=== PATIENT | female | born 1945 | race Caucasian/White ===

== ENCOUNTER → 2016-05-29 | Outpatient (CLI) | payer OTHER | LOC: FIMAGING 10:08 | DX: Z12.31 Encounter for screening mammogram for malignant neoplasm of breast (principal) | CPT/HCPCS: G0202 ==

== ENCOUNTER → 2016-07-04 | Outpatient (CLI) | payer OTHER ==
[~2016-07-04] MED LIST: IOPAMIDOL (ISOVUE 370) 100 ML BTL IV ONE
[2016-07-04 11:04] LABS: CREATININE 1.2 mg/dL (0.6-1.0)
== END ==
LOC: FIMAGING 10:16
PROVIDERS: ATTEND Internal Medicine Cardiovascular Disease
DX: I48.91 Unspecified atrial fibrillation (principal); J98.4 Other disorders of lung; E04.1 Nontoxic single thyroid nodule; K44.9 Diaphragmatic hernia without obstruction or gangrene
CPT/HCPCS: 75572; Q9967

== ENCOUNTER → 2016-09-28 | Outpatient (CLI) | payer OTHER | LOC: FIMAGING 11:11 | PROVIDERS: ATTEND Internal Medicine | DX: R05 Cough (principal); R07.9 Chest pain, unspecified; R50.9 Fever, unspecified; Z98.890 Other specified postprocedural states ==

== ENCOUNTER 2016-10-09 18:03 | Observation (INO) | payer OTHER ==
[2016-10-09] MEDS ORDERED: NS 1,000 ML IV ONE (18:11)
--- NOTE | 2016-10-09 18:14 | EDPHY ---
H & P Time Seen by Provider: 10/09/16 18:10 HPI/ROS: HPI CHIEF COMPLAINT: Severe chest pain HISTORY OF PRESENT ILLNESS: This patient is a 71-year-old female significant past medical history for factor 5 Leiden deficiency, multiple pulmonary embolisms, pulmonary hypertension oxygen dependent 2 L, AFib status post cardiac ablation, pacemaker, presents to the emergency room by EMS if she developed approximately 30 minutes ago sudden-onset severe 10/10 sharp stabbing chest pain radiated from the middle of her chest to her back. She did not have any jaw pain. Did not have any arm pain or weakness. She did have diaphoresis with this. Since EMS has transported here to the emergency room it has resolved. She did take full-dose aspirin prior to arrival she is on Coumadin. Past Medical History: Pulmonary embolisms, factor 5 Leiden deficiency on Coumadin, pulmonary hypertension, oxygen dependency Past Surgical History: Pacemaker, back surgery. Cardiac ablation Social History: Denies daily use of drugs alcohol tobacco products, lives locally. Family History: Noncontributory ROS REVIEW OF SYSTEMS: A comprehensive 10 point review of systems is otherwise negative aside from elements mentioned in the history of present illness. Exam Constitutional appears well nontoxic triage nursing summary reviewed, vital signs reviewed, awake/alert. Eyes normal conjunctivae and sclera, EOMI, PERRLA. HENT normal inspection, atraumatic, moist mucus membranes, no epistaxis, neck supple/ no meningismus, no raccoon eyes. Respiratory clear to auscultation bilaterally, normal breath sounds, no respiratory distress, no wheezing. Cardiovascular rate normal, regular rhythm, no murmur, no edema, distal pulses normal. Gastrointestinal soft, non-tender, no rebound, no guarding, normal bowel sounds, no distension, no pulsatile mass. Genitourinary no CVA tenderness. Musculoskeletal no midline vertebral tenderness, full range of motion, no calf swelling, no tenderness of extremities, no meningismus, good pulses, neurovascularly intact. Skin pink, warm, & dry, no rash, skin atraumatic. Neurologic awake, alert and oriented x 3, AAOx3, moves all 4 extremities equally, motor intact, sensory intact, CN II-XII intact, normal cerebellar, normal vision, normal speech. Psychiatric normal mood/affect. Heme/Lymph/Immune no lymphadenopathy. Differential diagnosis includes but is not limited to: ACS, atypical chest pain , pneumothorax, pneumonia, pulmonary embolism, aortic dissection, congestive heart failure, tumor, musculoskeletal pain, esophageal pain, GERD, peptic ulcer disease, pancreatitis Medical Decision Making: Plan for this patient full cardiac sonographer, IV establishment, EKG rule out acute coronary syndrome, check troponin, check D- dimer, blood work. Re-evaluation: EKG interpretation by me on record in [facility] system. Impression time of EKG 1815, atrially sensed ventricularly paced rhythm. Otherwise unremarkable. I do not appreciate abnormal concordance or discordance. 1936: I have consult the hospitalist service for admission for chest pain evaluation. The patient is still pending a CT of her chest for dissection. Unlikely to have dissection as she is hemodynamically stable. Troponin is negative. EKG is paced. X-ray does not show anything acute. This patient be admitted to the hospitalist service for chest pain evaluation and further cardiac rule out. She agrees for admission. Hemodynamically stable this time. Chest pain-free. Source: Patient - Personal History Tetanus Vaccine Date: <10 YRS - Medical/Surgical History Hx Asthma: No Hx Chronic Respiratory Disease: Yes Hx Diabetes: No Hx Cardiac Disease: Yes Hx Renal Disease: No Hx Cirrhosis: No Hx Alcoholism: No Hx HIV/AIDS: No Hx Splenectomy or Spleen Trauma: No Other PMH: Afib, Chronic Thromboembolic Pulmonary HTN, Factor 5 Leiden blood disorder, PE, Colitis. On home O2 at 2L r/t Pulmonary HTN. Herniated disc, 2 failed back surgeries. Hiatal hernia. Gerd. Hysterectomy, multiple orthopedic surgeries - Social History Smoking Status: Never smoked Constitutional: Initial Vital Signs Temperature (C) 37.3 C 10/09/16 18:10 Heart Rate 79 10/09/16 18:10 Respiratory Rate 18 10/09/16 18:10 Blood Pressure 124/77 H 10/09/16 18:10 O2 Sat (%) 94 10/09/16 18:10 O2 Delivery Mode Nasal Cannula O2 (L/minute) 2 Allergies/Adverse Reactions: clindamycin [Clindamycin] Allergy (Verified 11/19/15 11:10) meloxicam Allergy (Verified 11/19/15 11:10) venom-honey bee [bee venom (honey bee)] Allergy (Verified 11/19/15 11:10) Home Medications: Medication Instructions Recorded Budesonide [Entocort EC] 6 mg PO DAILY 08/04/14 Cyclobenzaprine [Flexeril 10 MG 10 mg PO HS 08/04/14 (*)] Flunisolide Nasal [Nasarel Nasal 1 sprays NS HS 08/04/14 [place]] Levothyroxine [Synthroid 137 mcg 137 mcg PO DAILY 08/04/14 (*)] Omeprazole [Prilosec] 40 mg PO BID 08/04/14 Sertraline HCl [Zoloft 50mg (*)] 50 mg PO DAILY 08/04/14 Zolpidem Tartrate [Ambien 10 mg] 10 mg PO HS PRN 08/04/14 Cholecalciferol Vit D3 [Vitamin D3 1,000 units PO DAILY 08/05/14 (*)] Docusate Sodium [Colace 100 MG (*)] 100 mg PO DAILY PRN 08/05/14 HYDROmorphone HCL [Dilaudid 2 mg 2 mg PO Q6 PRN 08/05/14 (*)] Herbals/Supplements -Info Only 1 ea PO DAILY 08/05/14 Hyoscyamine Sulfate [Levsin, 0.125 mg PO DAILY PRN 08/05/14 Hyomax-Sl 0.125 mg (*)] Multivitamins [Multivitamin (*)] 1 each PO DAILY@18 08/05/14 Potassium Chloride [Klor-Con M10] 10 meq PO DAILY@18 08/05/14 traMADol [Ultram 50 mg (*)] 100 mg PO BID 08/05/14 Metoprolol Tartrate [Lopressor 50 75 mg PO BID 04/14/15 mg (*)] amLODIPine BESYLATE [Norvasc 5 mg 5 mg PO DAILY 04/14/15 (*)] Lisinopril 20 mg PO DAILY #0 tablet 04/16/15 Cetirizine [ZyrTEC 10 mg (*)] 10 mg PO DAILY@18 PRN 10/09/16 Dicyclomine [Bentyl 10 MG (*)] 10 mg PO QID PRN 10/09/16 Furosemide 40 mg PO DAILY 10/09/16 Warfarin Sodium [Coumadin 2.5MG 1.25 mg PO MO@10/09/16 (*)] Warfarin Sodium [Coumadin 2.5MG 2.5 mg PO SUTUWETHFRSA@16 07/17/17 (*)] Medical Decision Making - Data Points Laboratory Results: Laboratory Results 10/09/16 18:10 10/09/16 18:10 Medications Given: Discontinued Medications Amlodipine Besylate (Norvasc) 5 mg PO DAILY SIENA Stop: 04/08/17 08:59 Last Admin: 10/10/16 08:35 Dose: 5 mg Budesonide (Entocort Ec) 6 mg PO DAILY SIENA Stop: 04/08/17 08:59 Last Admin: 10/10/16 08:34 Dose: 6 mg Cholecalciferol (Vitamin D) 1,000 units PO DAILY SIENA Stop: 04/08/17 08:59 Last Admin: 10/10/16 08:35 Dose: 1,000 units Furosemide (Lasix) 40 mg PO DAILY SIENA Stop: 04/08/17 08:59 Last Admin: 10/10/16 08:34 Dose: 40 mg Sodium Chloride (Ns) 1,000 mls @ 0 mls/hr IV ONCE ONE; Wide Open PRN Reason: Protocol Stop: 10/09/16 18:12 Last Admin: 10/09/16 18:21 Dose: 1,000 mls Levothyroxine Sodium (Synthroid) 137 mcg PO DAILY SIENA Stop: 04/08/17 08:59 Last Admin: 10/10/16 08:35 Dose: 137 mcg Lisinopril (Zestril) 20 mg PO DAILY SIENA Stop: 04/08/17 08:59 Last Admin: 10/10/16 08:34 Dose: 20 mg Metoprolol Tartrate (Lopressor) 75 mg PO BID SIENA Stop: 04/07/17 22:29 Last Admin: 10/10/16 08:31 Dose: 75 mg Pantoprazole Sodium (Protonix) 40 mg PO HS SIENA Stop: 04/07/17 22:29 Last Admin: 10/09/16 22:42 Dose: 40 mg Sertraline HCl (Zoloft) 50 mg PO DAILY SIENA Stop: 04/08/17 08:59 Last Admin: 10/10/16 08:35 Dose: 50 mg Tramadol HCl (Ultram) 100 mg PO BID SIENA Stop: 04/07/17 22:29 Last Admin: 10/10/16 08:32 Dose: 100 mg Warfarin Sodium (Coumadin) 1.25 mg PO MO@16 SIENA Stop: 04/07/17 22:29 Last Admin: 10/09/16 22:43 Dose: 1.25 mg Zolpidem Tartrate (Ambien) 10 mg PO HS PRN PRN Reason: Sleep/Insomnia Stop: 04/07/17 22:09 Last Admin: 10/09/16 22:45 Dose: 10 mg Departure - Departure Disposition: [facility] Inpatient Acute Clinical Impression: Chest pain Qualifiers: Chest pain type: unspecified Qualified Code(s): R07.9 - Chest pain, unspecified Condition: Good
--- NOTE | 2016-10-09 18:18 | CPEKG ---
Heart Rate: 70 RR Interval: 857 P-R Interval: 184 QRSD Interval: 132 QT Interval: 452 QTC Interval: 488 P [place]: 48 QRS [place]: 268 T Wave [place]: 61 EKG Severity - ABNORMAL ECG - EKG Impression: ATRIAL-SENSED VENTRICULAR-PACED RHYTHM Electronically Signed By: Nacho Christy 09-Oct-2016 22:32:10
[2016-10-09 18:21] LABS: % IMMATURE GRANULYOCYTES 0.5 % (0.0-1.1); ABSOLUTE IMMATURE GRANULOCYTES 0.04 10^3/uL (0.00-0.10); ADD DIFF? NO; ADD MORPH? NO; ADD SCAN? NO; ATYPICAL LYMPHOCYTE FLAG 10 (0-99); FRAGMENT RBC FLAG 0 (0-99); HEMATOCRIT 39.1 % (38.0-47.0); HEMOGLOBIN 12.8 g/dL (12.6-16.3); LEFT SHIFT FLG 0 (0-99); LIPEMIA HEMOLYSIS FLAG 80 (0-99); MEAN CELL HEMOGLOBIN 29.6 pg (27.9-34.1); MEAN CELL HEMOGLOBIN CONCENTR. 32.7 g/dL (32.4-36.7); MEAN CELL VOLUME 90.5 fL (81.5-99.8); MEAN PLATELET VOLUME 9.5 fL (8.7-11.7); PLATELET CLUMPS FLAG 0 (0-99); PLATELET COUNT 284 10^3/uL (150-400); RED BLOOD CELL COUNT 4.32 10^6/uL (4.18-5.33); RED CELL DISTRIBUTION WIDTH 14.3 % (11.5-15.2)
[2016-10-09 18:33] LABS: ALANINE AMINOTRANSFERASE 39 IU/L (9-52); ALBUMIN 4.4 g/dL (3.5-5.0); ALKALINE PHOSPHATASE 82 IU/L (38-126); ANION GAP 12 mEq/L (8-16); ASPARTATE AMINOTRANSFERASE 34 IU/L (14-46); BILIRUBIN,TOTAL 0.6 mg/dL (0.1-1.4); BILIRUBIN-CONJUGATED 0.3 mg/dL (0.0-0.5); BILIRUBIN-UNCONJUGATED 0.3 mg/dL (0.0-1.1); CALCIUM 10.2 mg/dL (8.5-10.4); CARBON DIOXIDE 29 mEq/l (22-31); CHLORIDE 98 mEq/L (97-110); CREATININE 1.3 mg/dL (0.6-1.0); GLOMERULAR FILTRATION RATE 40; GLUCOSE 122 mg/dL (70-100); INR 2.29 (0.83-1.16); MAGNESIUM 2.3 mg/dL (1.6-2.3); POTASSIUM 4.1 mEq/L (3.5-5.2); PROTIME(PATIENT) 25.4 SEC (12.0-15.0); SODIUM 139 mEq/L (134-144); TOTAL PROTEIN 7.6 g/dL (6.3-8.2)
[2016-10-09 18:34] LABS: APTT 36.1 SEC (23.0-38.0)
[2016-10-09 18:45] LABS: CREATINE KINASE-MB FRACTION 0.74 ng/mL (0-3.19); TROPONIN I < 0.012 ng/mL (0-0.034)
[2016-10-09] MEDS ORDERED: IOPAMIDOL (ISOVUE 370) 100 ML BTL IV ONE (19:54)
[2016-10-09] MEDS ORDERED: ACETAMINOPHEN 325 MG TAB PO PRN (21:54)
[2016-10-09] MEDS ORDERED: ONDANSETRON DISINTEGRATING 4 MG TAB PO PRN (21:54)
[2016-10-09] MEDS ORDERED: ONDANSETRON 4 MG/2 ML VIAL IVP PRN (21:54)
[2016-10-09] MEDS ORDERED: HYDROmorphONE/DILAUDID 2 MG TAB PO PRN (21:55)
[2016-10-09] MEDS ORDERED: DICYCLOMINE 10 MG CAP PO PRN (21:55)
[2016-10-09] MEDS ORDERED: HYOSCYAMINE SULFATE 0.125 MG TAB PO PRN (21:55)
[2016-10-09] MEDS ORDERED: DOCUSATE SODIUM 100 MG CAP PO PRN (21:55)
[2016-10-09] MEDS ORDERED: ZOLPIDEM TARTRATE 5 MG TAB PO PRN (22:10)
[2016-10-09] MEDS ORDERED: CETIRIZINE 10 MG TAB PO PRN (22:29)
[2016-10-09] MEDS ORDERED: WARFARIN SODIUM 2.5 MG TAB PO SCH (22:30)
[2016-10-09] MEDS ORDERED: PANTOPRAZOLE SODIUM 40 MG TAB PO SCH (22:30)
[2016-10-09] MEDS: traMADol 50 MG TAB PO SCH (22:41)
[2016-10-09] MEDS: METOPROLOL TARTRATE 50 MG TAB PO SCH (22:42)
--- NOTE | 2016-10-09 23:09 | GHP ---
[f rep st] HISTORY AND PHYSICAL DATE OF ADMISSION: 10/09/2016 HISTORY OF PRESENT ILLNESS: Ms Coleman is a pleasant 71-year-old female with history of pulmonary h ypertension secondary to PE as well as atrial fibrillation, status post ablation who presents with c entral chest pain that was severe. It was squeezing. It, perhaps, radiated to her back. It was 10 /10. She received some nitroglycerin and may have improved with that. She also got an aspirin. It was 4/5 in the ambulance and then get better. She has no history of coronary disease. It sounds l maya she has had some stress tests that have been negative in the past; although, I do not have those results available to me. She states she had an atrial fibrillation ablation just last week; althou gh, it is not clear to me based on our visit profile that this, in fact, happened. She has had no f ever, chills, cough, sputum, nausea, vomiting, diarrhea. Review of her records reveals she probably had an AFib ablation at [facility] in the last couple of months. REVIEW OF SYSTEMS: Complete 10-point review of systems conducted, negative except as noted in the H PI. PAST MEDICAL HISTORY: 1. Pulmonary hypertension secondary to PE. 2. PE. 3. Hypertension. 4. Atrial fibrillation status post ablation x2. 5. Factor 5 Leiden. 6. Reflux. 7. Microscopic colitis. ALLERGIES: Clindamycin, meloxicam, honey bee venom. HOME MEDICATIONS: Tramadol, amlodipine, Ambien, warfarin, sertraline, potassium chloride, omeprazol e, multivitamin, Lopressor, lisinopril, levothyroxine, hyoscyamine, Dilaudid pills, furosemide, flun isolide nasal spray, Bentyl, Flexeril, vitamin D3, Entocort. SOCIAL HISTORY: No tobacco, no alcohol. FAMILY HISTORY: Parents . PHYSICAL EXAMINATION: VITAL SIGNS: Temp 36.8, blood pressure 121/72, pulse 77, breathing 16 times a minute, 98 on 2 liters. GENERAL: No acute distress. Sclerae anicteric. Oropharynx clear. Muco us membranes are moist. NECK: Supple without lymphadenopathy or JVD. LUNGS: Clear to auscultatio n bilaterally. HEART: S1, S2. ABDOMEN: Soft, nontender, nondistended. LOWER EXTREMITIES: No ed lonny. Calves nontender. SKIN: Without rash. NEUROLOGIC: Grossly nonfocal. LABORATORY AND DIAGNOSTIC STUDIES: EKG interpreted by me shows AV node pacemaker, otherwise no acut e cardiopulmonary disease. CTA of the chest shows no pulmonary embolism. EKG, interpreted by me, s hows a sensed V paced rhythm with a left bundle branch block pattern. I discussed the case Dr. Baudilio Christy. ASSESSMENT/PLAN: This is a 71-year-old female with chest pain. 1. Chest pain. This does not sound like typical coronary artery disease chest-pain. It actually s ounds somewhat like an esophageal spasm. I discussed this with the patient and she was not necessar blake enthusiastic about that etiology. She says it does not sound like her pulmonary emboli. She allison s a therapeutic INR. She has a negative CT scan. We will cycle her troponins and perform Lexiscan in the morning. 2. Pulmonary hypertension. We will continue her medications. 3. History of multiple pulmonary emboli x3. Her INR is therapeutic. 4. Elevated creatinine. She has a baseline creatinine of about 1.2 and that is where she is today. DISPOSITION: Observation status. /[id number]/MODL
[2016-10-10 07:49] VITALS: BP 114/64; PULSE 70; RESP 15; TEMP 98.6; O2SAT 95
[2016-10-10] MEDS: METOPROLOL TARTRATE 50 MG TAB PO SCH (08:31)
[2016-10-10] MEDS: traMADol 50 MG TAB PO SCH (08:32)
[2016-10-10] MEDS ORDERED: LEVOTHYROXINE 137 MCG TAB PO SCH (09:00)
[2016-10-10] MEDS ORDERED: FUROSEMIDE 40 MG TAB PO SCH (09:00)
[2016-10-10] MEDS ORDERED: CHOLECALCIFEROL VIT D3 1,000 UNITS TAB PO SCH (09:00)
[2016-10-10] MEDS ORDERED: BUDESONIDE 3 MG EC CAP PO SCH (09:00)
[2016-10-10] MEDS ORDERED: PANTOPRAZOLE SODIUM 40 MG TAB PO SCH (09:00)
[2016-10-10] MEDS ORDERED: LISINOPRIL 20 MG TAB PO SCH (09:00)
[2016-10-10] MEDS ORDERED: traMADol 50 MG TAB PO SCH (09:00)
[2016-10-10] MEDS ORDERED: amLODIPine BESYLATE 5 MG TAB PO SCH (09:00)
[2016-10-10] MEDS ORDERED: METOPROLOL TARTRATE 50 MG TAB PO SCH (09:00)
[2016-10-10] MEDS ORDERED: Herbals/Supplements -Info Only PO SCH (09:00)
[2016-10-10] MEDS ORDERED: SERTRALINE HCL 50 MG TAB PO SCH (09:00)
--- NOTE | 2016-10-10 09:44 | PDDCSUM ---
Discharge Summary Discharge Summary: Dates of service 10/09-10/10/16 Discharge dx: # chest pain # chronic pulmonary htn # chronic hypoxic respiratory failure # recurrent PE # a fib # ckd # chronic pain/continuous narcotic use and dependency # microscopic colitis # hypothyroid Consultations/procedures: none Hospital course by problem: # chest pain: atypical and occurred on and off prior to presentation without recurrence here. Patient has had significant associated reflux as well and query esophageal spasm. 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 Discussed with cards who agree that with several negative trops, no ecg changes and atypical pain that this is reasonable. She will f/u in the next week # PE: recurrent with underlying factor V Leiden, continued on warfarin that is therapeutic, CTA showing no e/o VTE # ckd: at baseline # chronic pain with continuous narcotic use and dependency: continue op meds # microscopic colitis: continue entecort, levsin, bentyl. no acute complaints currently # chronic hypoxic respiratory failure: 2/2 recurrent PE, continued on her usual 2L # pulmonary htn: without elevated RVSP on most recent echo but patient has been on continuous o2, no e/o decompensation # a fib: s/p ablation with ppm, continued on ac/metop DC home f/u with cardiology in next week, f/u with pcp > 35 min spent in dc of patient, more than half in face to face counseling
[2016-10-10] MEDS ORDERED: WARFARIN SODIUM 2.5 MG TAB PO SCH (16:00)
[2016-10-10] MEDS ORDERED: CETIRIZINE 10 MG TAB PO PRN (18:00)
[2016-10-10] MEDS ORDERED: POTASSIUM CL 10 MEQ TAB PO SCH (18:00)
[2016-10-10] MEDS ORDERED: MULTIVITAMINS 1 EACH TAB PO SCH (18:00)
[2016-10-10] MEDS ORDERED: FLUNISOLIDE NASAL 200 SPRAYS/25 ML MDI NS SCH (21:00)
[2016-10-10] MEDS ORDERED: CYCLOBENZAPRINE 10 MG TAB PO SCH (21:00)
[2016-10-16] MEDS ORDERED: WARFARIN SODIUM 2.5 MG TAB PO SCH (16:00)
== END 2016-10-10 10:40 | disposition home or self-care (01) ==
LOC: EDUNIT# → INTOOBSV 19:39 → F2W 20:47
PROVIDERS: ADMIT Internal Medicine; ATTEND Internal Medicine
DX: R07.9 Chest pain, unspecified (principal); I27.2 Other secondary pulmonary hypertension; J96.11 Chronic respiratory failure with hypoxia; I48.91 Unspecified atrial fibrillation; N18.9 Chronic kidney disease, unspecified; I12.9 Hypertensive chronic kidney disease with stage 1 through stage 4 chronic kidney disease, or unspecified chronic kidney disease; G89.29 Other chronic pain; F11.20 Opioid dependence, uncomplicated; K52.839 Microscopic colitis, unspecified; E03.9 Hypothyroidism, unspecified; D68.51 Activated protein C resistance; K21.9 Gastro-esophageal reflux disease without esophagitis; K44.9 Diaphragmatic hernia without obstruction or gangrene; Z86.711 Personal history of pulmonary embolism; Z95.0 Presence of cardiac pacemaker; Z79.01 Long term (current) use of anticoagulants; Z99.81 Dependence on supplemental oxygen
CPT/HCPCS: 71010; 71275; 93005; G0378; Q9967

== ENCOUNTER → 2017-01-23 | Outpatient (CLI) | payer OTHER | LOC: FIMAGING 10:55 | PROVIDERS: ATTEND Internal Medicine | DX: Z13.820 Encounter for screening for osteoporosis (principal); M85.80 Other specified disorders of bone density and structure, unspecified site; Z78.0 Asymptomatic menopausal state; Z87.81 Personal history of (healed) traumatic fracture; Z82.62 Family history of osteoporosis; Z79.899 Other long term (current) drug therapy ==

== ENCOUNTER 2017-05-23 20:18 | Inpatient (IN) | payer OTHER ==
--- NOTE | 2017-05-23 20:29 | EDPHY ---
H & P Stated Complaint: SICK WEAK FOR PAST 24 HOURS DENIES FLU LIKE SX JUST WEAKNESS Time Seen by Provider: 05/23/17 20:28 HPI/ROS: HPI: This is a 71-year-old female who presents with Chief Complaint: SICK WEAK FOR PAST 24 HOURS DENIES FLU LIKE SX JUST WEAKNESS Location: Body Quality: Weakness Duration: 24 hr Signs and Symptoms: No fever, + nausea x1, + vomiting x 2, + diarrhea x2, + blurry vision, + aching headache, no neck stiffness, no cough, no wheezing, no chest pain, no radiation, no decreased range of motion, no palpitations, no shortness of breath Timing: Acute, constant Severity: Severe Context: Patient has a complicated medical history that includes atrial fibrillation on Coumadin, pacemaker, pulmonary hypertension, factor 5 Leiden did blood disorder, supplemental oxygen dependent presents with complaints of having generalized weakness and just not feeling well for the past 24 hr. She reports that she had some nausea and 2 episodes of vomiting yesterday and 2 episodes of diarrhea but attributes this to her colitis and irritable bowel syndrome. She believes that she may be dehydrated. She took her blood pressure medications this morning that include lisinopril, metoprolol as well as her pulmonary hypertension medicine but she is unable to recall the name of a but knows that starts with the letter "D." She has not taken her evening blood pressure medications as of yet. She noted this evening that her blood pressure was low; top number was in the 80s at home. She had lightheadedness with standing from a sitting position. No sick contacts. Modifying Factors: None Comment: ROS: see HPI Constitutional: No fever, no chills, no weight loss Eyes: No blurred vision Respiratory: No shortness of breath, no cough Cardiovascular: No chest pain Gastrointestinal: + nausea, + vomiting, + diarrhea Genitourinary: No dysuria Extremities: No myalgias Neurologic: No weakness, no numbness Skin: No rashes Hematologic: No bruising, no bleeding MEDICAL/SURGICAL/SOCIAL HISTORY: Medical/Surgical history: Afib, PACEMAKER, Chronic Thromboembolic Pulmonary HTN , Factor 5 Leiden blood disorder, PE, Colitis. On home O2 at 2L r/t Pulmonary HTN. Herniated disc, 2 failed back surgeries. Hiatal hernia. ischemic colitis. Gerd. Hysterectomy, multiple orthopedic surgeries Social history: Retired. Family history noncontributory. CONSTITUTIONAL: Chronically ill-appearing elderly white female, moaning and yelling out with blood pressure cuff, awake and alert, no obvious distress HEENT: Atraumatic and normocephalic, PERRL, EOMI. Tympanic membranes clear. Oropharynx clear, no exudate and moist pink mucosa. Airway patent. No lymphadenopathy. No meningismus. Cardiovascular: Normal S1/S2, regular rate, irregular rhythm, without murmur rub or gallop. PULMONARY/CHEST: Symmetrical and nontender. Clear to auscultation bilaterally. Good air movement. No accessory muscle usage. ABDOMEN: Soft, nondistended, nontender, no rebound, no guarding, no peritoneal signs, no masses or organomegaly. No CVAT. EXTREMITIES: 2/2 pulses, strength 5/5, no deformities, no clubbing, no cyanosis or edema. NEUROLOGICAL: no focal neuro deficits. GCS 15. SKIN: Warm and dry, pallor, no erythema. no rash. Good capillary refill. Source: Patient, Family (significant other) Exam Limitations: No limitations - Personal History Current Tetanus/Diphtheria Vaccine: Yes Current Tetanus Diphtheria and Acellular Pertussis (TDAP): Yes Tetanus Vaccine Date: <10 YRS - Medical/Surgical History Hx Asthma: No Hx Chronic Respiratory Disease: Yes Hx Diabetes: No Hx Cardiac Disease: Yes Hx Renal Disease: No Hx Cirrhosis: No Hx Alcoholism: No Hx HIV/AIDS: No Hx Splenectomy or Spleen Trauma: No Other PMH: Afib, PACEMAKER, Chronic Thromboembolic Pulmonary HTN, Factor 5 Leiden blood disorder, PE, Colitis. On home O2 at 2L r/t Pulmonary HTN. Herniated disc, 2 failed back surgeries. Hiatal hernia. Gerd. Hysterectomy, multiple orthopedic surgeries - Social History Smoking Status: Never smoked Constitutional: Initial Vital Signs Temperature (C) 37.1 C 05/23/17 20:22 Heart Rate 80 05/23/17 20:22 Respiratory Rate 20 05/23/17 20:22 Blood Pressure 80/49 L 05/23/17 20:22 O2 Sat (%) 96 05/23/17 20:22 O2 Delivery Mode Nasal Cannula O2 (L/minute) 3 Allergies/Adverse Reactions: clindamycin [Clindamycin] Allergy (Verified 05/23/17 20:25) meloxicam Allergy (Verified 05/23/17 20:25) venom-honey bee [bee venom (honey bee)] Allergy (Verified 05/23/17 20:25) Home Medications: Medication Instructions Recorded Budesonide [Entocort EC] 6 mg PO DAILY 08/04/14 Cyclobenzaprine [Flexeril 10 MG 10 mg PO HS 08/04/14 (*)] Flunisolide Nasal [Nasarel Nasal 1 sprays NS HS 08/04/14 [place]] Levothyroxine [Synthroid 137 mcg 137 mcg PO DAILY 08/04/14 (*)] Omeprazole [Prilosec] 40 mg PO BID 08/04/14 Sertraline HCl [Zoloft 50mg (*)] 50 mg PO DAILY 08/04/14 Zolpidem Tartrate [Ambien 10 mg] 10 mg PO HS PRN 08/04/14 Cholecalciferol Vit D3 [Vitamin D3 1,000 units PO DAILY 08/05/14 (*)] Docusate Sodium [Colace 100 MG (*)] 100 mg PO DAILY PRN 08/05/14 HYDROmorphone HCL [Dilaudid 2 mg 2 mg PO Q6 PRN 08/05/14 (*)] Herbals/Supplements -Info Only 1 ea PO DAILY 08/05/14 Hyoscyamine Sulfate [Levsin, 0.125 mg PO DAILY PRN 08/05/14 Hyomax-Sl 0.125 mg (*)] Multivitamins [Multivitamin (*)] 1 each PO DAILY@18 08/05/14 Potassium Chloride [Klor-Con M10] 10 meq PO DAILY@18 08/05/14 traMADol [Ultram 50 mg (*)] 100 mg PO BID 08/05/14 Metoprolol Tartrate [Lopressor 50 75 mg PO BID 04/14/15 mg (*)] amLODIPine BESYLATE [Norvasc 5 mg 5 mg PO DAILY 04/14/15 (*)] Lisinopril 20 mg PO DAILY #0 tablet 04/16/15 Cetirizine [ZyrTEC 10 mg (*)] 10 mg PO DAILY@18 PRN 10/09/16 Dicyclomine [Bentyl 10 MG (*)] 10 mg PO QID PRN 10/09/16 Furosemide 40 mg PO DAILY 10/09/16 Warfarin Sodium [Coumadin 2.5MG 1.25 mg PO MO@10/09/16 (*)] Warfarin Sodium [Coumadin 2.5MG 2.5 mg PO SUTUWETHFRSA@10/09/16 (*)] Medical Decision Making ED Course/Re-evaluation: EKG, labs, urinalysis, IV fluids Systolic 80-90s upon arrival and symptomatic. Suspect blood pressure medication and hypokalemia related but will rule out infectious, cardiac, metabolic etiologies. EKG my read shows paced rhythm with a rate of 72 beats per minute; no acute ischemic changes. Chart review shows echocardiogram on 04/15/2015 with EF of 65-70%. Given 500 cc NS 2100: Labs reviewed and show WBC 14 K with a lactic acid of 2.2. INR 3.18. BUN: 30 and 18 in february. Creatinine 1.9 and 1.2 in February ProBNP is elevated but suspect renal related 0: ED decision to consult for admission. Spoke with Hospital Dr. Ulisses Meneses family agrees to admit patient for further care. Urinalysis and repeat lactic acid pending at time of consult. This patient was seen under the supervision of my secondary supervising physician. I evaluated care for this patient independently. Discussed this patient with Dr. Gongora who did not see the patient. Differential Diagnosis: Weakness including but not limited to electrolyte abnormality, depression, anxiety, CVA, spinal cord abnormality, and infectious causes. - Data Points Laboratory Results: Laboratory Results 05/23/17 20:35 05/23/17 20:35 05/23/17 05/23/17 05/23/17 20:35 20:35 20:35 WBC 14.00 10^3/uL H 10^3/uL (3.80-9.50) RBC 4.68 10^6/uL 10^6/uL (4.18-5.33) Hgb 14.1 g/dL g/dL (12.6-16.3) Hct 40.9 % % (38.0-47.0) MCV 87.4 fL fL (81.5-99.8) MCH 30.1 pg pg (27.9-34.1) MCHC 34.5 g/dL g/dL (32.4-36.7) RDW 14.2 % % (11.5-15.2) Plt Count 240 10^3/uL 10^3/uL (150-400) MPV 9.0 fL fL (8.7-11.7) Neut % (Auto) 78.9 % H % (39.3-74.2) Lymph % (Auto) 11.0 % L % (15.0-45.0) [place] % (Auto) 7.9 % % (4.5-13.0) Eos % (Auto) 1.4 % % (0.6-7.6) Baso % (Auto) 0.4 % % (0.3-1.7) Nucleat RBC Rel Count 0.0 % % (0.0-0.2) Absolute Neuts (auto) 11.05 10^3/uL H 10^3/uL (1.70-6.50) Absolute Lymphs (auto) 1.54 10^3/uL 10^3/uL (1.00-3.00) Absolute Monos (auto) 1.10 10^3/uL H 10^3/uL (0.30-0.80) Absolute Eos (auto) 0.20 10^3/uL 10^3/uL (0.03-0.40) Absolute Basos (auto) 0.06 10^3/uL 10^3/uL (0.02-0.10) Absolute Nucleated RBC 0.00 10^3/uL 10^3/uL (0-0.01) Immature Gran % 0.4 % % (0.0-1.1) Immature Gran # 0.05 10^3/uL 10^3/uL (0.00-0.10) PT 32.4 SEC H SEC (12.0-15.0) INR 3.18 H (0.83-1.16) APTT 52.7 SEC H SEC (23.0-38.0) VBG Lactic Acid Sodium 136 mEq/L mEq/L (135-145) Potassium 4.0 mEq/L mEq/L (3.5-5.2) Chloride 96 mEq/L L mEq/L (97-110) Carbon Dioxide 28 mEq/l mEq/l (22-31) Anion Gap 12 mEq/L mEq/L (8-16) BUN 30 mg/dL H mg/dL (7-23) Creatinine 1.9 mg/dL H mg/dL (0.6-1.0) Estimated GFR 26 Glucose 116 mg/dL H mg/dL (70-100) Calcium 9.5 mg/dL mg/dL (8.5-10.4) Magnesium 2.7 mg/dL H mg/dL (1.6-2.3) Total Bilirubin 0.6 mg/dL mg/dL (0.1-1.4) Conjugated Bilirubin 0.3 mg/dL mg/dL (0.0-0.5) Unconjugated Bilirubin 0.3 mg/dL mg/dL (0.0-1.1) AST 38 IU/L IU/L (14-46) ALT 47 IU/L IU/L (9-52) Alkaline Phosphatase 65 IU/L IU/L (38-126) Troponin I < 0.012 ng/mL ng/mL (0.000-0.034) NT-Pro-B Natriuret Pep 1150 pg/mL H pg/mL (0-125) Total Protein 6.6 g/dL g/dL (6.3-8.2) Albumin 3.8 g/dL g/dL (3.5-5.0) Lipase < 10 IU/L L IU/L (23-300) 05/23/17 20:35 WBC RBC Hgb Hct MCV MCH MCHC RDW Plt Count MPV Neut % (Auto) Lymph % (Auto) [place] % (Auto) Eos % (Auto) Baso % (Auto) Nucleat RBC Rel Count Absolute Neuts (auto) Absolute Lymphs (auto) Absolute Monos (auto) Absolute Eos (auto) Absolute Basos (auto) Absolute Nucleated RBC Immature Gran % Immature Gran # PT INR APTT VBG Lactic Acid 2.2 mmol/L H mmol/L (0.7-2.1) Sodium Potassium Chloride Carbon Dioxide Anion Gap BUN Creatinine Estimated GFR Glucose Calcium Magnesium Total Bilirubin Conjugated Bilirubin Unconjugated Bilirubin AST ALT Alkaline Phosphatase Troponin I NT-Pro-B Natriuret Pep Total Protein Albumin Lipase Medications Given: Discontinued Medications Sodium Chloride (Ns) 500 mls @ 1,000 mls/hr IV EDNOW ONE PRN Reason: Protocol Stop: 05/23/17 21:06 Last Admin: 05/23/17 20:44 Dose: 500 mls Departure - Departure Disposition: [facility] Acute Clinical Impression: Generalized weakness, Dehydration, SIRS (systemic inflammatory response syndrome) Hypotension Qualifiers: Hypotension type: other hypotension type Qualified Code(s): I95.89 - Other hypotension Condition: Fair Referrals: Nilesh Reno MD [Primary Care Provider] - As per Instructions
[2017-05-23] MEDS ORDERED: NS 500 ML IV ONE (20:37)
--- NOTE | 2017-05-23 20:40 | CPEKG ---
Heart Rate: 72 RR Interval: 833 P-R Interval: 332 QRSD Interval: 136 QT Interval: 444 QTC Interval: 486 P [place]: 5 QRS [place]: -81 T Wave [place]: 70 EKG Severity - ABNORMAL ECG - EKG Impression: VENTRICULAR-PACED COMPLEXES EKG Impression: FIRST DEGREE AV BLOCK EKG Impression: IVCD, CONSIDER ATYPICAL RBBB EKG Impression: LEFT VENTRICULAR HYPERTROPHY Electronically Signed By: Nawaf Michael 25-May-2017 20:39:46
[2017-05-23 20:46] LABS: PLATELET COUNT 240 10^3/uL (150-400)
[2017-05-23 20:58] LABS: INR 3.18 (0.83-1.16); PROTIME(PATIENT) 32.4 SEC (12.0-15.0)
[2017-05-23] MEDS ORDERED: ACETAMINOPHEN 325 MG TAB PO PRN (23:04)
[2017-05-23] MEDS ORDERED: ONDANSETRON 4 MG/2 ML VIAL IVP PRN (23:04)
[2017-05-23] MEDS ORDERED: NS 1,000 ML IV ONE (23:12)
[2017-05-23] MEDS ORDERED: HYOSCYAMINE SULFATE 0.125 MG TAB PO PRN (23:17)
[2017-05-23] MEDS ORDERED: ZOLPIDEM TARTRATE 5 MG TAB PO PRN (23:17)
--- NOTE | 2017-05-24 | PDGENHP ---
History and Physical - Chief Complaint low blood pressure, nausea/vomiting/diarrhea - History of Present Illness Source-patient provides history appears reliable. Her EMR was also reviewed and case discussed with the accepting hospitalist provider Patient goes by Giorgi KODAK-very pleasant 71-year-old female with past medical history significant for atrial fibrillation, factor 5 Leiden deficiency, history of PE on chronic anticoagulation with Coumadin, asthma, hypothyroidism, pulmonary hypertension, GERD, IBS, microscopic colitis who presents emergency department today with complaints of 1 day history of nausea vomiting and diarrhea. Patient also reports that she had some lower abdominal cramping related to having to go to the bathroom frequently. Patient reports that she has had multiple episodes that she can't count. She denies any hematemesis, melena, hematochezia. She denies any known sick contacts. Patient denies any recent travel, camping or use of well water. She denies any fevers or chills. Patient does report difficulties keeping any hydration and feeling quite dry. Patient also was having increasing lightheadedness with blurry vision and diffuse muscle aching. She has also had a persistent constant headache without any associated changes in vision or photophobia. At home patient did measure her blood pressure and noted that the lowest was 75/40. She had taken her morning antihypertensives including metoprolol and lisinopril but in the evening did not not take any of her medications including Lasix. Patient does admit to experiencing severe palpitations without any chest pain. Patient reports that she received a notification for through her [place] monitoring system that 1 of her leads may not be working appropriately. She has not yet been to follow up with her Cardiology team at [place]. Patient reports that she has a dual- chamber [place] pacer in place. 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 Given her severe dehydration she presented to the emergency department for further evaluation and treatment. In the emergency department, patient was noted to be hypotensive. She received 500 cc bolus with improvement of her blood pressures to low 100s. Patient also received antiemetics with improvement in her nausea vomiting. She was able to tolerate some liquids. On the medical floor patient's blood pressures were noted to be back down into the 80s. Patient had persistent headache with that did not change. History Information - Allergies/Home Medication List Allergies/Adverse Reactions: clindamycin [Clindamycin] Allergy (Verified 05/23/17 20:25) meloxicam Allergy (Verified 05/23/17 20:25) venom-honey bee [bee venom (honey bee)] Allergy (Verified 05/23/17 20:25) Home Medications: Budesonide [Entocort EC] 6 mg PO DAILY 08/04/14 [Last Taken 05/23/17] Cyclobenzaprine [Flexeril 10 MG (*)] 10 mg PO HS 08/04/14 [Last Taken 05/22/17] Flunisolide Nasal [Nasarel Nasal [place]] 1 sprays NS HS 08/04/14 [Last Taken ] Levothyroxine [Synthroid 137 mcg (*)] 137 mcg PO DAILY 08/04/14 [Last Taken ] Omeprazole [Prilosec] 40 mg PO BID 08/04/14 [Last Taken 05/23/17 09:00] Zolpidem Tartrate [Ambien 10 mg] 10 mg PO HS PRN 08/04/14 [Last Taken 05/22/17] Docusate Sodium [Colace 100 MG (*)] 100 mg PO DAILY PRN 08/05/14 [Last Taken 3 Days Ago ~05/20/17] Herbals/Supplements -Info Only 1 ea PO DAILY 08/05/14 [Last Taken 05/23/17] Hyoscyamine Sulfate [Levsin, Hyomax-Sl 0.125 mg (*)] 0.125 mg PO DAILY PRN 08/05 [Last Taken 05/22/17] Multivitamins [Multivitamin (*)] 1 each PO DAILY@18 08/05/14 [Last Taken ] Potassium Chloride [Klor-Con M10] 10 meq PO DAILY@08/05/14 [Last Taken ] traMADol [Ultram 50 mg (*)] 100 mg PO BID 08/05/14 [Last Taken 05/23/17 09:00] Metoprolol Tartrate [Lopressor 50 mg (*)] 75 mg PO BID 04/14/15 [Last Taken 09:00] Furosemide 40 mg PO DAILY 10/09/16 [Last Taken 05/22/17] Warfarin Sodium [Coumadin 2.5MG (*)] 1.25 mg PO MO@16 10/09/16 [Last Taken 05/21] Warfarin Sodium [Coumadin 2.5MG (*)] 2.5 mg PO SUTUWETHFRSA@16 10/09/16 [Last Taken 05/22/17] Adempas 2.5 mg PO TID 05/23/17 [Last Taken 05/23/17 09:00] Lisinopril [Zestril 5 mg (*)] 5 mg PO DAILY 05/23/17 [Last Taken 05/23/17] Sertraline HCl [Zoloft 100mg (*)] 100 mg PO DAILY 05/23/17 [Last Taken 05/23/17] I have personally reviewed and updated: family history, medical history, social history, surgical history - Past Medical History Additional medical history: Atrial fibrillation S/P pacer (patient reports it is a [place] dual-chamber pacer) for which she is followed at [place], factor 5 Leiden deficiency, history of PE, chronic anticoagulation with Coumadin, depression, asthma, hypothyroidism, IBS diarrhea predominant, microscopic colitis, herniated discs, hiatal hernia, single episode of aspiration pneumonia patient is not require to be on any modified diet, chronic back pain - Surgical History Additional surgical history: Back surgery multiple, hysterectomy, ablation in 2017, pacer placement - Family History Additional family history: Cousins with diabetes. Patient's twin sister now had a history of diabetes and metastatic melanoma - Social History Smoking Status: Never smoked Alcohol Use: None Drug Use: None Additional social history: Patient is retired. Cor status is full. Review of Systems Review of Systems: ROS: 10pt was reviewed & negative except for what was stated in HPI & below Constitutional: Reports: malaise. Denies: chills, fever EENMT: Reports: blurred vision. Denies: double vision, nose congestion, sore throat Cardiac: Reports: palpitations. Denies: chest pain Respiratory: Reports: shortness of breath (Patient reports some increased shortness of breath and she increased her O2 from 2-3 nasal cannula with improvement.). Denies: cough Gastrointestinal: Reports: vomitting, abdominal pain (Lower abdominal cramping) , diarrhea, nausea. Denies: black stools, rectal bleeding, abdominal distention Genitourinary: Reports: other (Patient notes decreased urine output. Has not voided since arrival to the hospital.). Denies: dysuria, hematuria Muscolosketal: Reports: back pain (Chronic back pain), muscle pain (Diffuse muscle aching) Neurological: Reports: headache, tingling (Patient reports some tingling in the tips of her fingers.). Denies: depressed, tremors Hematologic/Lymphatic: Reports: no symptoms Physical Exam Physical Exam: Selected Entries 05/23/17 20:22 Blood Pressure Automatic Method Heart Rate 80 Respiratory 20 Rate O2 Sat (%) 96 Temperature (C) 37.1 C Blood Pressure 80/49 L Mean Arterial 59 L Pressure (MAP) O2 (L/minute) 2 O2 Delivery Nasal Cannula Mode Temperature Oral Source Temp Pulse Resp BP Pulse Ox 36.7 C 70 16 112/54 L 94 05/23/17 23:42 05/23/17 23:42 05/23/17 23:42 05/23/17 23:42 05/23/17 23:42 O2 (L/minute) 4 Constitutional: no apparent distress, uncomfortable, other (Acute on chronically ill. Nontoxic. Uncomfortable) Eyes: PERRL, anicteric sclera, EOMI Ears, Nose, Mouth, Throat: no oral mucosal ulcers, dry mucous membranes, other ( No nasal discharge), No poor dentition Cardiovascular: regular rate and rhythym, no murmur, rub, or gallop (Slightly distant heart sounds), No edema Peripheral Pulses: 2+: dorsalis-pedis (R), dorsalis-pedis (L) Respiratory: no respiratory distress, no rales or rhonchi, clear to auscultation , reduced air movement (Bibasilar), No expiratory wheeze Gastrointestinal: normoactive bowel sounds, soft, non-tender abdomen, no palpable masses, No guarding, No distension Genitourinary: no bladder tenderness, No palacios in urethra Skin: warm, normal color, no rashes or abrasions Musculoskeletal: generalized weakness (Patient able to move all extremities 4-5 strength upper lower extremities while lying in bed.), other (No decreases in neck range of motion) Neurologic: AAOx3, sensation intact bilaterally, weakness (Generalized), other ( Grossly nonfocal exam. Patient moves all extremities.), No facial droop Psychiatric: interacting appropriately, not anxious, not encephalopathic, thought process linear Lab Data & Imaging Review 05/24/17 04:11 05/24/17 04:11 WBC 14.00 10^3/uL (3.80-9.50) H 05/23/17 20:35 RBC 4.68 10^6/uL (4.18-5.33) 05/23/17 20:35 Hgb 14.1 g/dL (12.6-16.3) 05/23/17 20:35 Hct 40.9 % (38.0-47.0) 05/23/17 20:35 MCV 87.4 fL (81.5-99.8) 05/23/17 20:35 MCH 30.1 pg (27.9-34.1) 05/23/17 20:35 MCHC 34.5 g/dL (32.4-36.7) 05/23/17 20:35 RDW 14.2 % (11.5-15.2) 05/23/17 20:35 Plt Count 240 10^3/uL (150-400) 05/23/17 20:35 MPV 9.0 fL (8.7-11.7) 05/23/17 20:35 Neut % (Auto) 78.9 % (39.3-74.2) H 05/23/17 20:35 Lymph % (Auto) 11.0 % (15.0-45.0) L 05/23/17 20:35 [place] % (Auto) 7.9 % (4.5-13.0) 05/23/17 20:35 Eos % (Auto) 1.4 % (0.6-7.6) 05/23/17 20:35 Baso % (Auto) 0.4 % (0.3-1.7) 05/23/17 20:35 Nucleat RBC Rel Count 0.0 % (0.0-0.2) 05/23/17 20:35 Absolute Neuts (auto) 11.05 10^3/uL (1.70-6.50) H 05/23/17 20:35 Absolute Lymphs (auto) 1.54 10^3/uL (1.00-3.00) 05/23/17 20:35 Absolute Monos (auto) 1.10 10^3/uL (0.30-0.80) H 05/23/17 20:35 Absolute Eos (auto) 0.20 10^3/uL (0.03-0.40) 05/23/17 20:35 Absolute Basos (auto) 0.06 10^3/uL (0.02-0.10) 05/23/17 20:35 Absolute Nucleated RBC 0.00 10^3/uL (0-0.01) 05/23/17 20:35 Immature Gran % 0.4 % (0.0-1.1) 05/23/17 20:35 Immature Gran # 0.05 10^3/uL (0.00-0.10) 05/23/17 20:35 PT 32.4 SEC (12.0-15.0) H 05/23/17 20:35 INR 3.18 (0.83-1.16) H 05/23/17 20:35 APTT 52.7 SEC (23.0-38.0) H 05/23/17 20:35 VBG Lactic Acid 1.3 mmol/L (0.7-2.1) D 05/23/17 22:08 Sodium 136 mEq/L (135-145) 05/23/17 20:35 Potassium 4.0 mEq/L (3.5-5.2) 05/23/17 20:35 Chloride 96 mEq/L (97-110) L 05/23/17 20:35 Carbon Dioxide 28 mEq/l (22-31) 05/23/17 20:35 Anion Gap 12 mEq/L (8-16) 05/23/17 20:35 BUN 30 mg/dL (7-23) H 05/23/17 20:35 Creatinine 1.9 mg/dL (0.6-1.0) H 05/23/17 20:35 Estimated GFR 26 05/23/17 20:35 Glucose 116 mg/dL (70-100) H 05/23/17 20:35 Calcium 9.5 mg/dL (8.5-10.4) 05/23/17 20:35 Magnesium 2.7 mg/dL (1.6-2.3) H 05/23/17 20:35 Total Bilirubin 0.6 mg/dL (0.1-1.4) 05/23/17 20:35 Conjugated Bilirubin 0.3 mg/dL (0.0-0.5) 05/23/17 20:35 Unconjugated Bilirubin 0.3 mg/dL (0.0-1.1) 05/23/17 20:35 AST 38 IU/L (14-46) 05/23/17 20:35 ALT 47 IU/L (9-52) 05/23/17 20:35 Alkaline Phosphatase 65 IU/L (38-126) 05/23/17 20:35 Troponin I < 0.012 ng/mL (0.000-0.034) 05/23/17 20:35 NT-Pro-B Natriuret Pep 1150 pg/mL (0-125) H 05/23/17 20:35 Total Protein 6.6 g/dL (6.3-8.2) 05/23/17 20:35 Albumin 3.8 g/dL (3.5-5.0) 05/23/17 20:35 Lipase < 10 IU/L (23-300) L 05/23/17 20:35 Assessment & Plan Assessment: Hypotension (Acute) -with history of benign essential hypertension likely secondary to hypovolemia in addition patient had been taking her antihypertensives earlier in the morning. She is volume responsive after receiving 500 cc bolus in the emergency department. Patient does appear to be quite dry will go ahead and give her a 1 L bolus followed by aggressive IV fluid hydration IV. She does have history of AFib and a pacer in place but no noted issues with CHF. Will monitor for fluid status closely. Holding patient' s antihypertensives. Patient is quite anxious regarding holding most of her home medications secondary to her history of pulmonary hypertension as well as her history of steroid tapering. Acute kidney injury on CKD stage 3 - patient reports her baseline creatinine is 1.1-1.2. Currently 1.9 and likely pre renal in nature related to patient's hypovolemia and decreased arterial perfusion in setting of her hypotension. Anticipate that this should improve with fluid resuscitation and mandaeism of her blood pressure. Pharmacy consultation to assist with renal dosing. Will avoid nephrotoxic medications. Nausea vomiting and diarrhea - suspect a viral gastroenteritis versus exacerbation of her colitis. Patient has not had any further episodes of vomiting or diarrhea since arrival to the hospital. If this should recur then will plan to obtain a GI PCR panel. Antiemetics p.r.n. Lactic acidosis - resolved status post IV fluids. Dehydration (Acute) - IV fluids as noted above. Encourage oral hydration as tolerated. SIRS (systemic inflammatory response syndrome) (Acute) - vital signs have improved. Patient without any further tachycardia. Will monitor her WBC in the morning for resolution of her leukocytosis. Etiology is likely viral gastroenteritis. Supratherapeutic INR - the increase in setting of dehydration. Will monitor PT INR. Pharmacy consultation to assist with appropriate dosing. Generalized weakness (Acute) - IV fluid hydration reassess in the morning p.r.n. PT OT evaluations. Up with assist well patient with episodes of hypotension and continued complaints of weakness. Headache - ongoing since patient's symptoms started likely related to hypotension dehydration and possible withdrawal from patient's chronically taken medications. She has no focal deficits no changes in vision no photophobia. Will treat with the tramadol and continue IV fluid hydration and see if patient's symptoms improved. chronic medical issues Atrial fibrillation status post pacer - supratherapeutic INR greater than 3 at this time. Patient is monitored on telemetry. She has not had any episodes of RVR but has reported some significant increase in palpitations since she has become ill. Patient also reports that her [place] pacer monitor at home did alert her to the possibility of some abnormal readings. Will request interrogation of patient's pacer. Continue anticoagulation with Coumadin. Pharmacy consultation to assist with dosing. Hypothyroidism - resume patient's levothyroxine as tolerated Asthma - albuterol p.r.n. Depression-resume patient's sertraline IBS-diarrhea predominant - supportive care. Plan as noted above Microscopic colitis Chronic back pain - resume patient's tramadol. [place] p.r.n. History aspiration pneumonia - patient reported some coughing she denies that this is attributed to swallowing any snacks or liquids. Will monitor closely given patient's complaint of increased oxygen needs at home. Pulmonary hypertension - resume patient's home medications FEN - aggressive IV fluid hydration overnight. Advance diet as tolerated and encourage oral hydration. Electrolytes will be monitored and replaced p.r.n. PPX - SCDs if tolerated. Patient's INR just slightly supratherapeutic. Core-full Disposition-patient admitted to inpatient status on PCU floor for close cardiac monitoring. Given patient's multiple acute issues, persistent hypotension and severe dehydration anticipate that she will require to at least 2 midnights hospital stay.
[2017-05-24] MEDS: HYDROCODONE/APAP 5/325 TAB PO PRN ×4 (00:03→16:03)
[2017-05-24 04:32] LABS: PLATELET COUNT 194 10^3/uL (150-400)
[2017-05-24 04:36] LABS: INR 3.76 (0.83-1.16); PROTIME(PATIENT) 36.8 SEC (12.0-15.0)
[2017-05-24 04:46] LABS: CREATINE KINASE 42 IU/L (0-156)
[2017-05-24] MEDS: LEVOTHYROXINE 137 MCG TAB PO SCH (05:59)
[2017-05-24] MEDS: NS 1,000 ML IV SCH ×2 (06:00→16:05)
--- NOTE | 2017-05-24 08:16 | CPEKG ---
Heart Rate: 83 RR Interval: 723 P-R Interval: 192 QRSD Interval: 142 QT Interval: 448 QTC Interval: 527 P [place]: 35 QRS [place]: 269 T Wave [place]: 63 EKG Severity - ABNORMAL ECG - EKG Impression: SINUS RHYTHM EKG Impression: NONSPECIFIC IVCD WITH LAD EKG Impression: INFERIOR INFARCT, AGE INDETERMINATE EKG Impression: LATERAL INFARCT, AGE INDETERMINATE EKG Impression: ANTERIOR INFARCT, OLD EKG Impression: MORPHILOGY APPEARS THR SAME PRIOR, BUT PACER SPIKES ARE NOT NOTED Electronically Signed By: Nawaf Michael 24-May-2017 17:43:18
--- NOTE | 2017-05-24 08:55 | PDMN ---
Medical Necessity Medical necessity: Pt meets IP criteria per MD; est los >2 mn for eval/tx of persistent hypotension, severe dehydration, acute kidney injury on CKD stage 3, SIRS, N/V, diarrhea & generalized weakness; admit for close cardiac monitoring, aggressive IVFs, IV antiemetics, med management & therapies; hx aspiration pneumonia, AFIB w/pacer, PE on AC, factor 5 Leiden deficiency, asthma, pulmonary htn & IBS; per H&P & order 05/23/17
[2017-05-24] MEDS ORDERED: PANTOPRAZOLE SODIUM 40 MG TAB PO SCH (09:00)
--- NOTE | 2017-05-24 09:15 | CPEKG ---
Heart Rate: 70 RR Interval: 857 QRSD Interval: 140 QT Interval: 460 QTC Interval: 497 P [place]: 0 QRS [place]: -89 T Wave [place]: 73 EKG Severity - ABNORMAL ECG - EKG Impression: COMPLETE AV BLOCK, A-RATE 78 EKG Impression: LEFT VENTRICULAR HYPERTROPHY EKG Impression: INFERIOR INFARCT, AGE INDETERMINATE EKG Impression: EXTENSIVE ANTERIOR INFARCT, AGE INDETERMINATE EKG Impression: BORDERLINE PROLONGED QT INTERVAL Electronically Signed By: Nawaf Michael 24-May-2017 18:01:03
[2017-05-24] MEDS: BUDESONIDE 3 MG EC CAP PO SCH (10:50)
[2017-05-24] MEDS: SERTRALINE HCL 100 MG TAB PO SCH (10:51)
--- NOTE | 2017-05-24 11:39 | ASMTCASEMG ---
Living Arrangements What is your living Answers: With Partner arrangement? Who do you live with? Type Of Residence What kind of residence do Answers: House you live in? Discharge Plan Comments Coordination Status Comments Notes: Pts case reviewed in tx rounds. Pt is a 71 y/o female admitted for dehydration, SIRS and hypotension. Therapies have been ordered and awaiting recommendations. Needs are TBD at this time. CM to follow. Plan: TBD Date Signed: 05/24/2017 11:38 AM Electronically Signed By:CORA Yepez
[2017-05-24] MEDS ORDERED: WARFARIN SODIUM 2.5 MG TAB PO SCH (16:00)
--- NOTE | 2017-05-24 16:06 | HOSPPROG ---
Hospitalist Progress Note Assessment/Plan: 71 yo F w multiple comorbidities here w n/v/d and jermaine jermaine: hypovolemic in setting of MUNA-i and diuretic hold above gentle IVF n/v/d: suspect viral gastroenteritis gi path panel when/if recurrent diarrhea- none since admit benign exam pulm htn: continue adempla poorly functioning atrial lead: she is not dependent on this d/w dr bojorquez outpt follow up palpitations: restart BB palacios: attempted removal in AM does not have uti dispo: inpt Subjective: case d/w dr bojorquez Objective: Vital Signs Temp Pulse Resp BP Pulse Ox 36.9 C 87 18 113/61 95 05/24/17 15:50 05/24/17 15:50 05/24/17 15:50 05/24/17 15:50 05/24/17 15:50 Laboratory Results 05/24/17 04:11 05/24/17 04:11 05/23/17 05/24/17 05/25/17 05:59 05:59 05:59 Intake Total 580 1200 Output Total 50 1000 Balance 530 200 PT 36.8 SEC (12.0-15.0) H 05/24/17 04:11 INR 3.76 (0.83-1.16) H 05/24/17 04:11 - Physical Exam Constitutional: no apparent distress, appears nourished Eyes: PERRL, anicteric sclera Ears, Nose, Mouth, Throat: moist mucous membranes, hearing normal Cardiovascular: regular rate and rhythym, no murmur, rub, or gallop Respiratory: no respiratory distress, no rales or rhonchi Gastrointestinal: normoactive bowel sounds, No guarding, No rebound Genitourinary: palacios in urethra Skin: warm, normal color Musculoskeletal: full muscle strength, no muscle tenderness Neurologic: AAOx3 Psychiatric: interacting appropriately ICD10 Worksheet Patient Problems: Problems Problem Status Onset Dehydration Acute Generalized weakness Acute Hypotension Acute SIRS (systemic inflammatory response syndrome) Acute Abdominal pain Acute Afib - Atrial fibrillation Acute CKD (chronic kidney disease) stage 3, GFR 30-59 ml/min Acute Chest pain Acute Diarrhea Acute HTN (hypertension) Acute Microscopic colitis Acute Nausea & vomiting Acute Pre-syncope Acute Syncope and collapse Acute
[2017-05-24] MEDS: METOPROLOL TARTRATE 50 MG TAB PO SCH ×2 (16:09→21:58)
[2017-05-24] MEDS ORDERED: POTASSIUM CL 10 MEQ TAB PO SCH (18:00)
[2017-05-24] MEDS ORDERED: FLUNISOLIDE NASAL 200 SPRAYS/25 ML MDI NS SCH (21:00)
[2017-05-24] MEDS ORDERED: CYCLOBENZAPRINE 10 MG TAB PO SCH (21:00)
[2017-05-24] MEDS: OMEPRAZOLE 40MG CAPS PO SCH (21:56)
[2017-05-24] MEDS: traMADol 50 MG TAB PO SCH (22:05)
[2017-05-25 04:33] LABS: INR 3.6 (0.83-1.16); PROTIME(PATIENT) 35.6 SEC (12.0-15.0)
[2017-05-25] MEDS: LEVOTHYROXINE 137 MCG TAB PO SCH (05:36)
[2017-05-25] MEDS: METOPROLOL TARTRATE 50 MG TAB PO SCH (05:36)
[2017-05-25 07:45] VITALS: O2SAT 95
[2017-05-25] MEDS: SERTRALINE HCL 100 MG TAB PO SCH (09:09)
[2017-05-25] MEDS: traMADol 50 MG TAB PO SCH (09:09)
[2017-05-25] MEDS: OMEPRAZOLE 40MG CAPS PO SCH (09:12)
[2017-05-25] MEDS ORDERED: BUDESONIDE 3 MG EC CAP PO ONE (10:00)
[2017-05-25] MEDS: BUDESONIDE 3 MG EC CAP PO SCH (10:26)
[2017-05-25] MEDS ORDERED: HYOSCYAMINE SULFATE 0.125 MG TAB PO ONE (10:30)
[2017-05-25 12:16] VITALS: BP 131/70; PULSE 79; RESP 17; TEMP 97.6
--- NOTE | 2017-05-25 13:30 | HOSPPROG ---
Hospitalist Progress Note Assessment/Plan: 71 yo F w multiple comorbidities here w n/v/d and jermaine jermaine: hypovolemic in setting of MUNA-i and diuretic hold above gentle IVF resolved n/v/d: suspect viral gastroenteritis gi path panel when/if recurrent diarrhea- none since admit benign exam pulm htn: continue adempla poorly functioning atrial lead: she is not dependent on this d/w dr bojorquez outpt follow up palpitations: restart BB palacios: attempted removal in AM does not have uti dispo: home today > 30 minutes Subjective: tearful and agitated. cr normal Objective: Vital Signs Temp Pulse Resp BP Pulse Ox 36.4 C 79 17 131/70 H 95 05/25/17 12:00 05/25/17 12:00 05/25/17 12:00 05/25/17 12:00 05/25/17 12:00 Laboratory Results 05/24/17 04:11 05/25/17 11:20 05/24/17 05/25/17 05/26/17 05:59 05:59 05:59 Intake Total 580 4033 Output Total 50 1850 300 Balance 530 2183 -300 PT 35.6 SEC (12.0-15.0) H 05/25/17 04:00 INR 3.60 (0.83-1.16) H 05/25/17 04:00 - Physical Exam Constitutional: no apparent distress, appears nourished Eyes: PERRL, anicteric sclera Ears, Nose, Mouth, Throat: moist mucous membranes, hearing normal Cardiovascular: regular rate and rhythym, no murmur, rub, or gallop Respiratory: no respiratory distress, no rales or rhonchi Gastrointestinal: normoactive bowel sounds, soft, non-tender abdomen Genitourinary: No palacios in urethra Skin: warm, normal color Musculoskeletal: full muscle strength ICD10 Worksheet Patient Problems: Problems Problem Status Onset Dehydration Acute Generalized weakness Acute Hypotension Acute SIRS (systemic inflammatory response syndrome) Acute Abdominal pain Acute Afib - Atrial fibrillation Acute CKD (chronic kidney disease) stage 3, GFR 30-59 ml/min Acute Chest pain Acute Diarrhea Acute HTN (hypertension) Acute Microscopic colitis Acute Nausea & vomiting Acute Pre-syncope Acute Syncope and collapse Acute
--- NOTE | 2017-05-25 13:48 | GDS ---
[f rep st] DISCHARGE SUMMARY DISCHARGE DIAGNOSES: 1. Acute kidney injury. 2. Pulmonary hypertension. 3. Atrioventricular pacer with disrupted atrial lead. 4. Factor 5 Leiden deficiency, on Coumadin. 5. History of pulmonary embolism, depression, hypothyroidism, irritable bowel syndrome, microscopic colitis, herniated disks. HOSPITAL COURSE: Please see admission history and physical by Dr. Cherelle Mcintosh. The patient present ed with nausea, vomiting, diarrhea, and elevated creatinine. She was felt to be prerenal. Her pacer was interrogated and found to have decreased impedance of the atrial lead. She was seen by EP, felt outpatient followup was reasonable. Notably, she is not atrial lead dependent. The patient was given gentle hydration. Her MUNA inhibitor and diuretics were held. She is toleratin g an oral diet. She is discharged home to resume her outpatient medicines as prescribed tomorrow. /[id number]/MODL
--- NOTE | 2017-05-25 14:29 | ASMTLACE ---
LACE Length of stay for Answers: 2 days current admission Acuity / Level of Answers: Yes Care: Did the patient have an inpatient admission? Comorbidities - select Answers: Other Notes: Pulmonary HTN, GERD, Hx all that apply of PE # of Emergency department Answers: 1-2 visits in the last 6 months Score: 7 Date Signed: 05/25/2017 02:28 PM Electronically Signed By:CORA Yepez
[2017-05-28] MEDS ORDERED: WARFARIN SODIUM 2.5 MG TAB PO SCH (16:00)
== END 2017-05-25 16:50 | disposition home or self-care (01) | DRG 683 ==
LOC: F2W 22:23
PROVIDERS: ADMIT Internal Medicine; ATTEND Internal Medicine
DX: N17.9 Acute kidney failure, unspecified (principal); D68.2 Hereditary deficiency of other clotting factors; T82.897A Other specified complication of cardiac prosthetic devices, implants and grafts, initial encounter; I27.20 Pulmonary hypertension, unspecified; F32.9 Major depressive disorder, single episode, unspecified; E03.9 Hypothyroidism, unspecified; K58.9 Irritable bowel syndrome, unspecified; Z99.81 Dependence on supplemental oxygen; N18.3 Chronic kidney disease, stage 3 (moderate); E86.0 Dehydration; Z79.01 Long term (current) use of anticoagulants; Z86.711 Personal history of pulmonary embolism
CPT/HCPCS: 97161-GP; 97166-GO; 97535-GO; G8978-GP-CI; G8979-GP-CI; G8980-GP-CI; G8987-GO-CI; G8988-GO-CI; J2405

== ENCOUNTER → 2017-06-12 | Outpatient (CLI) | payer OTHER | LOC: FIMAGING 13:35 | PROVIDERS: ATTEND Internal Medicine | DX: Z12.31 Encounter for screening mammogram for malignant neoplasm of breast (principal) ==

== ENCOUNTER → 2017-07-10 | Outpatient (CLI) | payer OTHER | LOC: CIMAGING 14:05 | PROVIDERS: ATTEND Physical Medicine & Rehabilitation | DX: M51.36 Other intervertebral disc degeneration, lumbar region (principal); M48.061 Spinal stenosis, lumbar region without neurogenic claudication | CPT/HCPCS: 72131-PO ==

== ENCOUNTER 2017-10-07 04:04 | Observation (INO) | payer OTHER ==
[2017-10-07] MEDS ORDERED: ONDANSETRON 4 MG/2 ML VIAL ONE (04:11)
[2017-10-07 04:30] LABS: PLATELET COUNT 282 10^3/uL (150-400)
[2017-10-07] MEDS ORDERED: ONDANSETRON 4 MG/2 ML VIAL IVP ONE (04:31)
[2017-10-07] MEDS ORDERED: FAMOTIDINE 20 MG/NACL 50 ML IV ONE (04:31)
[2017-10-07] MEDS ORDERED: PROMETHAZINE HCL 25 MG/ML INJ ONE (04:33)
[2017-10-07] MEDS ORDERED: PROMETHAZINE HCL 25 MG/ML INJ IVP ONE (04:35)
--- NOTE | 2017-10-07 05:14 | CPEKG ---
Heart Rate: 79 RR Interval: 759 P-R Interval: 192 QRSD Interval: 130 QT Interval: 452 QTC Interval: 519 P [place]: 37 QRS [place]: -82 T Wave [place]: 65 EKG Severity - ABNORMAL ECG - EKG Impression: SINUS RHYTHM EKG Impression: LEFT VENTRICULAR HYPERTROPHY EKG Impression: INFERIOR INFARCT, AGE INDETERMINATE EKG Impression: ANTEROLATERAL INFARCT, AGE INDETERMINATE Electronically Signed By: Haley Delcid 08-Oct-2017 07:59:39
[2017-10-07] MEDS ORDERED: NS 1,000 ML IV ONE (05:44)
[2017-10-07] MEDS ORDERED: HYDROmorphONE/DILAUDID 2 MG/ML INJ IVP ONE (05:46)
--- NOTE | 2017-10-07 05:50 | EDPHY ---
H & P Stated Complaint: epigastric pain-NV Source: Patient, Old records Exam Limitations: No limitations - Personal History Current Tetanus Diphtheria and Acellular Pertussis (TDAP): Yes Tetanus Vaccine Date: <10 YRS - Medical/Surgical History Hx Asthma: No Hx Chronic Respiratory Disease: Yes Hx Diabetes: No Hx Cardiac Disease: Yes Hx Renal Disease: No Hx Cirrhosis: No Hx Alcoholism: No Hx HIV/AIDS: No Hx Splenectomy or Spleen Trauma: No Other PMH: left eye blindness, twin- born 2 months premature, Afib, PACEMAKER, Chronic Thromboembolic Pulmonary HTN, Factor 5 Leiden blood disorder, PE, Colitis. On home O2 at 2L r/t Pulmonary HTN. Herniated disc, 2 failed back surgeries. Hiatal hernia. Gerd. Hysterectomy, multiple orthopedic surgeries. chronic kidney issues chronic 1.1-1.2 - Social History Smoking Status: Never smoked Time Seen by Provider: 10/07/17 05:30 HPI/ROS: HPI The patient presents with nausea, vomiting, epigastric abdominal pain. The patient is brought in by ambulance and received IV fluids and Zofran EN route. She went out to dinner this evening and ate a cheese enchilada and a chili rejeno. When she returned home at about 7:00 p.m.. She had epigastric abdominal pain which was aching, severe, then associated with nausea and vomiting. She had numerous episodes of nonbloody nonbilious emesis then followed by dry heaves. This was associated with some diaphoresis. Her symptoms persisted and were uncontrolled so she called 911. She denies any fever , diarrhea, dark or bloody stools. REVIEW OF SYSTEMS Constitutional: No fever, no chills. Eyes: No discharge. ENT: No sore throat. Cardiovascular: No chest pain, no palpitations. Respiratory: No cough, no shortness of breath. Gastrointestinal: See HPI Genitourinary: No hematuria. Musculoskeletal: No back pain. Skin: No rashes. Neurological: No headache. PMHx: Microscopic colitis, IBS, atrial fibrillation on Coumadin, pulmonary hypertension with history of PE Soc Hx: Here with her partner PHYSICAL General Appearance: Alert, no distress Eyes: Pupils equal and round no pallor or injection ENT, Mouth: Mucous membranes moist Respiratory: There are no retractions, lungs are clear to auscultation Cardiovascular: Regular rate and rhythm Gastrointestinal: Abdomen is soft with tenderness in the epigastrium, no masses , bowel sounds normal Neurological: A&O, moves all extremities Skin: Warm and dry, no rashes Musculoskeletal: Neck is supple non tender Extremities: symmetrical, full range of motion Psychiatric: Patient is oriented X 3, there is no agitation (Haley Delcid) Constitutional: Initial Vital Signs Temperature (C) 37.1 C 10/07/17 04:07 Heart Rate 72 10/07/17 04:07 Respiratory Rate 16 10/07/17 04:07 Blood Pressure 144/83 H 10/07/17 04:07 O2 Sat (%) 94 10/07/17 04:07 O2 Delivery Mode Nasal Cannula O2 (L/minute) 2 Allergies/Adverse Reactions: clindamycin [Clindamycin] Allergy (Verified 10/07/17 04:07) meloxicam Allergy (Verified 10/07/17 04:07) venom-honey bee [bee venom (honey bee)] Allergy (Verified 10/07/17 04:07) Home Medications: Medication Instructions Recorded Budesonide [Entocort EC] 6 mg PO DAILY 08/04/14 Cyclobenzaprine [Flexeril 10 MG 10 mg PO HS 08/04/14 (*)] Flunisolide Nasal [Nasarel Nasal 1 sprays NS HS 08/04/14 [place]] Levothyroxine [Synthroid 137 mcg 137 mcg PO DAILY 08/04/14 (*)] Omeprazole [Prilosec] 40 mg PO BID 08/04/14 Zolpidem Tartrate [Ambien 10 mg] 10 mg PO HS PRN 08/04/14 Docusate Sodium [Colace 100 MG (*)] 100 mg PO DAILY PRN 08/05/14 Herbals/Supplements -Info Only 1 ea PO DAILY 08/05/14 Hyoscyamine Sulfate [Levsin, 0.125 mg PO DAILY PRN 08/05/14 Hyomax-Sl 0.125 mg (*)] Multivitamins [Multivitamin (*)] 1 each PO DAILY@18 08/05/14 Potassium Chloride [Klor-Con M10] 10 meq PO DAILY@18 08/05/14 traMADol [Ultram 50 mg (*)] 100 mg PO BID 08/05/14 Metoprolol Tartrate [Lopressor 50 75 mg PO BID 01/20/16 mg (*)] Furosemide 40 mg PO DAILY 10/09/16 Warfarin Sodium [Coumadin 2.5MG 1.25 mg PO MO@10/09/16 (*)] Warfarin Sodium [Coumadin 2.5MG 2.5 mg PO SUTUWETHFRSA@10/09/16 (*)] Adempas 2.5 mg PO TID 05/23/17 Lisinopril [Zestril 5 mg (*)] 5 mg PO DAILY 05/23/17 Sertraline HCl [Zoloft 100mg (*)] 100 mg PO DAILY 05/23/17 Medical Decision Making - Diagnostics Imaging: Discussed imaging studies w/ manager call center Radiologist, I viewed and interpreted images myself - Diagnostics EKG Interpretation: EKG: Complete interpretation has been separately recorded in the [facility] archive. Summary impression: Ventricular pacing with QRS widening (Haley Delcid) Imaging Results: Chest x-ray one view shows increased presumed atelectasis at lung bases, interpreted by me, radiology interpretation is pending. CT scan of abdomen pelvis with IV contrast demonstrates hiatal hernia no other acute findings, discussed with Dr. Marks of Radiology. (Haley Delcid) ED Course/Re-evaluation: I just spoke to the radiologist Dr. Tony Solis and also to surgeon Dr. Phillip García. Both of confirmed that the esophagram is negative. I have held the Zosyn and Protonix at this point. This patient will be admitted to the hospitalist as planned. (Sandeep Suero) Differential Diagnosis: This is a 72-year-old female with multiple medical problems including atrial fibrillation on Coumadin, pacemaker in place, history of PE, pulmonary hypertension, microscopic colitis who presents brought in by ambulance from her home with epigastric abdominal pain associated with nausea and vomiting. She has had ongoing vomiting here despite receiving IV fluids, Zofran, Phenergan, famotidine. Differential diagnosis includes Boerhaave syndrome, gastritis, gastroenteritis, toxin mediated enterocolitis. In the emergency department, patient was treated with IV fluids, antiemetics, pain medication with minimal improvement in her symptoms. Labs were checked and were unremarkable including a point of care troponin. EKG was unremarkable. Chest x-ray demonstrated increased atelectasis with no pneumomediastinum. CT scan of her abdomen revealed hiatal hernia with no signs of obstruction. She was monitored in the emergency department for about 3 hr without any improvement in her symptoms. I have consulted with Dr. Auguste of the hospitalist service and he will admit the patient. I have ordered CT scan of her chest to evaluate for any pneumomediastinum suggestive of Boerhaave syndrome given her ongoing chest pain here. CT scan of her chest actually did raise suspicion for esophageal tear. I have ordered a barium swallow esophagram for further evaluation. I have consulted with the general surgeon security operations analyst Dr. García who will evaluate the patient. ( Haley Delcid) - Data Points Laboratory Results: Laboratory Results 10/07/17 04:15 10/07/17 04:15 10/07/17 10/07/17 10/07/17 04:19 04:15 04:15 WBC RBC Hgb Hct MCV MCH MCHC RDW Plt Count MPV Neut % (Auto) Lymph % (Auto) [place] % (Auto) Eos % (Auto) Baso % (Auto) Nucleat RBC Rel Count Absolute Neuts (auto) Absolute Lymphs (auto) Absolute Monos (auto) Absolute Eos (auto) Absolute Basos (auto) Absolute Nucleated RBC Immature Gran % Immature Gran # PT 23.1 SEC H SEC (12.0-15.0) INR 2.04 H (0.83-1.16) Sodium Potassium Chloride Carbon Dioxide Anion Gap BUN Creatinine Estimated GFR Glucose Calcium Total Bilirubin 0.5 mg/dL mg/dL (0.1-1.4) Conjugated Bilirubin 0.3 mg/dL mg/dL (0.0-0.5) Unconjugated Bilirubin 0.2 mg/dL mg/dL (0.0-1.1) AST 36 IU/L IU/L (14-46) ALT 26 IU/L IU/L (9-52) Alkaline Phosphatase 88 IU/L IU/L (38-126) POC Troponin I 0.00 ng/mL ng/mL (0.00-0.08) Total Protein 7.0 g/dL g/dL (6.3-8.2) Albumin 4.0 g/dL g/dL (3.5-5.0) Lipase < 10 IU/L L IU/L (23-300) 10/07/17 10/07/17 04:15 04:15 WBC 7.09 10^3/uL 10^3/uL (3.80-9.50) RBC 4.04 10^6/uL L 10^6/uL (4.18-5.33) Hgb 11.6 g/dL L g/dL (12.6-16.3) Hct 36.9 % L % (38.0-47.0) MCV 91.3 fL fL (81.5-99.8) MCH 28.7 pg pg (27.9-34.1) MCHC 31.4 g/dL L g/dL (32.4-36.7) RDW 14.6 % % (11.5-15.2) Plt Count 282 10^3/uL 10^3/uL (150-400) MPV 9.3 fL fL (8.7-11.7) Neut % (Auto) 80.5 % H % (39.3-74.2) Lymph % (Auto) 10.4 % L % (15.0-45.0) [place] % (Auto) 6.1 % % (4.5-13.0) Eos % (Auto) 2.0 % % (0.6-7.6) Baso % (Auto) 0.7 % % (0.3-1.7) Nucleat RBC Rel Count 0.0 % % (0.0-0.2) Absolute Neuts (auto) 5.71 10^3/uL 10^3/uL (1.70-6.50) Absolute Lymphs (auto) 0.74 10^3/uL L 10^3/uL (1.00-3.00) Absolute Monos (auto) 0.43 10^3/uL 10^3/uL (0.30-0.80) Absolute Eos (auto) 0.14 10^3/uL 10^3/uL (0.03-0.40) Absolute Basos (auto) 0.05 10^3/uL 10^3/uL (0.02-0.10) Absolute Nucleated RBC 0.00 10^3/uL 10^3/uL (0-0.01) Immature Gran % 0.3 % % (0.0-1.1) Immature Gran # 0.02 10^3/uL 10^3/uL (0.00-0.10) PT INR Sodium 141 mEq/L mEq/L (135-145) Potassium 4.4 mEq/L mEq/L (3.3-5.0) Chloride 100 mEq/L mEq/L (97-110) Carbon Dioxide 30 mEq/l mEq/l (22-31) Anion Gap 11 mEq/L mEq/L (8-16) BUN 16 mg/dL mg/dL (7-23) Creatinine 0.9 mg/dL mg/dL (0.6-1.0) Estimated GFR > 60 Glucose 134 mg/dL H mg/dL (70-100) Calcium 9.9 mg/dL mg/dL (8.5-10.4) Total Bilirubin Conjugated Bilirubin Unconjugated Bilirubin AST ALT Alkaline Phosphatase POC Troponin I Total Protein Albumin Lipase Medications Given: Discontinued Medications Al Hydroxide/Mg Hydroxide (Maalox Susp) 30 ml PO EDNOW ONE Stop: 10/07/17 06:58 Last Admin: 10/07/17 07:32 Dose: 30 ml Hydromorphone HCl (Dilaudid) 0.5 mg IVP EDNOW ONE Stop: 10/07/17 05:47 Last Admin: 10/07/17 05:57 Dose: 0.5 mg Famotidine/Sodium Chloride (Pepcid 20 Mg (Premix)) 50 mls @ 200 mls/hr IV EDNOW ONE Stop: 10/07/17 04:45 Last Admin: 10/07/17 04:35 Dose: 50 mls Sodium Chloride (Ns) 1,000 mls @ 0 mls/hr IV EDNOW ONE; Wide Open PRN Reason: Protocol Stop: 10/07/17 05:45 Last Admin: 10/07/17 05:57 Dose: 1,000 mls Lidocaine (Lidocaine 2% Viscous) 5 ml PO EDNOW ONE Stop: 10/07/17 06:58 Last Admin: 10/07/17 07:32 Dose: 5 ml Ondansetron HCl (Zofran) 4 mg IVP EDNOW ONE Stop: 10/07/17 04:32 Last Admin: 10/07/17 04:38 Dose: Not Given Promethazine HCl (Phenergan) 6.25 mg IVP EDNOW ONE Stop: 10/07/17 04:36 Last Admin: 10/07/17 04:36 Dose: 6.25 mg Point of Care Test Results: Chemistry 10/07/17 04:19 POC Troponin I 0.00 ng/mL ng/mL (0.00-0.08) Departure - Departure Disposition: [facility] Inpatient Acute Clinical Impression: Hiatal hernia Abdominal pain Qualifiers: Abdominal location: epigastric Qualified Code(s): R10.13 - Epigastric pain Chest pain Qualifiers: Chest pain type: unspecified Qualified Code(s): R07.9 - Chest pain, unspecified Nausea & vomiting Qualifiers: Vomiting type: unspecified Vomiting Intractability: intractable Qualified Code( s): R11.2 - Nausea with vomiting, unspecified Condition: Fair
[2017-10-07] MEDS ORDERED: IOPAMIDOL (ISOVUE-300) 100 ML BTL ONE (05:52)
[2017-10-07 06:42] LABS: INR 2.04 (0.83-1.16); PROTIME(PATIENT) 23.1 SEC (12.0-15.0)
[2017-10-07] MEDS ORDERED: LIDOCAINE 2% VISCOUS 15 ML UDCUP PO ONE (06:57)
[2017-10-07] MEDS ORDERED: MAG HYDROX/AL HYDROX/SIMETH 30 ML UDCUP PO ONE (06:57)
[2017-10-07] MEDS ORDERED: ONDANSETRON DISINTEGRATING 4 MG TAB PO PRN (06:57)
--- NOTE | 2017-10-07 07:29 | PDGENHP ---
History and Physical - Chief Complaint Abdominal pain - History of Present Illness 72 yo F w/ hx of FVL, microscopic colitis, IBS, AF, and PE presents with abdominal pain. Patient tells me that she was in her usual state of health yesterday. She went out to eat last evening, but when she got home she began to have epigastric abdominal pain. She then developed vomiting around 9 PM, which continued so she came to the ED. She denies seeing blood in her vomit. She has history of IBS and microscopic colitis but states those issues have never cause symptoms similar to this presentation. She does state that she has had esophageal spasms in the past that felt somewhat similar. Her work-up in the ED has been mostly unremarkable. Her abdominal CT shows only moderate hiatal hernia. Her INR is therapeutic making blood clot less likely. At the time of my evaluation patient is still quite symptomatic despite H2B, GI cocktail, Dilaudid , and anti-emetics. Case was discussed with ED physician Dr. Delcid. Previous records reviewed including H/P by Dr. Mcintosh dated 05/23/17 detailing admission hypotension, diarrhea, and YEMI. History Information - Allergies/Home Medication List Allergies/Adverse Reactions: clindamycin [Clindamycin] Allergy (Verified 10/07/17 04:07) meloxicam Allergy (Verified 10/07/17 04:07) venom-honey bee [bee venom (honey bee)] Allergy (Verified 10/07/17 04:07) Home Medications: Budesonide [Entocort EC] 6 mg PO DAILY 08/04/14 [Last Taken 05/23/17] Cyclobenzaprine [Flexeril 10 MG (*)] 10 mg PO HS 08/04/14 [Last Taken 05/22/17] Flunisolide Nasal [Nasarel Nasal [place]] 1 sprays NS HS 08/04/14 [Last Taken ] Levothyroxine [Synthroid 137 mcg (*)] 137 mcg PO DAILY 08/04/14 [Last Taken ] Omeprazole [Prilosec] 40 mg PO BID 08/04/14 [Last Taken 05/23/17 09:00] Zolpidem Tartrate [Ambien 10 mg] 10 mg PO HS PRN 08/04/14 [Last Taken 05/22/17] Docusate Sodium [Colace 100 MG (*)] 100 mg PO DAILY PRN 08/05/14 [Last Taken 3 Days Ago ~05/20/17] Herbals/Supplements -Info Only 1 ea PO DAILY 08/05/14 [Last Taken 05/23/17] Hyoscyamine Sulfate [Levsin, Hyomax-Sl 0.125 mg (*)] 0.125 mg PO DAILY PRN 08/05 [Last Taken 05/22/17] Multivitamins [Multivitamin (*)] 1 each PO DAILY@08/05/14 [Last Taken ] Potassium Chloride [Klor-Con M10] 10 meq PO DAILY@08/05/14 [Last Taken ] traMADol [Ultram 50 mg (*)] 100 mg PO BID 08/05/14 [Last Taken 05/23/17 09:00] Metoprolol Tartrate [Lopressor 50 mg (*)] 75 mg PO BID 04/14/15 [Last Taken 09:00] Furosemide 40 mg PO DAILY 10/09/16 [Last Taken 05/22/17] Warfarin Sodium [Coumadin 2.5MG (*)] 1.25 mg PO MO@16 10/09/16 [Last Taken 05/21] Warfarin Sodium [Coumadin 2.5MG (*)] 2.5 mg PO SUTUWETHFRSA@16 10/09/16 [Last Taken 05/22/17] Adempas 2.5 mg PO TID 05/23/17 [Last Taken 05/23/17 09:00] Lisinopril [Zestril 5 mg (*)] 5 mg PO DAILY 05/23/17 [Last Taken 05/23/17] Sertraline HCl [Zoloft 100mg (*)] 100 mg PO DAILY 05/23/17 [Last Taken 05/23/17] I have personally reviewed and updated: family history, medical history - Past Medical History Additional medical history: Atrial fibrillation S/P pacer (patient reports it is a [place] dual-chamber pacer) for which she is followed at [facility], factor 5 Leiden deficiency, history of PE, chronic anticoagulation with Coumadin, depression, asthma, hypothyroidism, IBS diarrhea predominant, microscopic colitis, herniated discs, hiatal hernia, single episode of aspiration pneumonia patient is not require to be on any modified diet, chronic back pain - Surgical History Additional surgical history: Back surgery multiple, hysterectomy, ablation in 2017, pacer placement - Family History Additional family history: Cousins with diabetes. Patient's twin sister now had a history of diabetes and metastatic melanoma - Social History Smoking Status: Never smoked Additional social history: Patient is retired. Cor status is full. Review of Systems Review of Systems: ROS: 10pt was reviewed & negative except for what was stated in HPI & below Physical Exam Physical Exam: Temp Pulse Resp BP Pulse Ox 37.1 C 81 16 134/78 H 96 10/07/17 04:07 10/07/17 06:00 10/07/17 06:00 10/07/17 06:00 10/07/17 06:00 Constitutional: appears nourished, uncomfortable Eyes: PERRL, EOMI Ears, Nose, Mouth, Throat: moist mucous membranes, no oral mucosal ulcers Cardiovascular: regular rate and rhythym, no murmur, rub, or gallop Respiratory: no respiratory distress, clear to auscultation Gastrointestinal: normoactive bowel sounds, tenderness (Epi-gastric), No guarding, No rebound, No distension Skin: warm, normal color Musculoskeletal: full muscle strength, no muscle tenderness Neurologic: AAOx3, CN II-XII Intact Psychiatric: interacting appropriately, not anxious Lab Data & Imaging Review 10/07/17 04:15 10/07/17 04:15 WBC 7.09 10^3/uL (3.80-9.50) 10/07/17 04:15 RBC 4.04 10^6/uL (4.18-5.33) L 10/07/17 04:15 Hgb 11.6 g/dL (12.6-16.3) L 10/07/17 04:15 Hct 36.9 % (38.0-47.0) L 10/07/17 04:15 MCV 91.3 fL (81.5-99.8) 10/07/17 04:15 MCH 28.7 pg (27.9-34.1) 10/07/17 04:15 MCHC 31.4 g/dL (32.4-36.7) L 10/07/17 04:15 RDW 14.6 % (11.5-15.2) 10/07/17 04:15 Plt Count 282 10^3/uL (150-400) 10/07/17 04:15 MPV 9.3 fL (8.7-11.7) 10/07/17 04:15 Neut % (Auto) 80.5 % (39.3-74.2) H 10/07/17 04:15 Lymph % (Auto) 10.4 % (15.0-45.0) L 10/07/17 04:15 [place] % (Auto) 6.1 % (4.5-13.0) 10/07/17 04:15 Eos % (Auto) 2.0 % (0.6-7.6) 10/07/17 04:15 Baso % (Auto) 0.7 % (0.3-1.7) 10/07/17 04:15 Nucleat RBC Rel Count 0.0 % (0.0-0.2) 10/07/17 04:15 Absolute Neuts (auto) 5.71 10^3/uL (1.70-6.50) 10/07/17 04:15 Absolute Lymphs (auto) 0.74 10^3/uL (1.00-3.00) L 10/07/17 04:15 Absolute Monos (auto) 0.43 10^3/uL (0.30-0.80) 10/07/17 04:15 Absolute Eos (auto) 0.14 10^3/uL (0.03-0.40) 10/07/17 04:15 Absolute Basos (auto) 0.05 10^3/uL (0.02-0.10) 10/07/17 04:15 Absolute Nucleated RBC 0.00 10^3/uL (0-0.01) 10/07/17 04:15 Immature Gran % 0.3 % (0.0-1.1) 10/07/17 04:15 Immature Gran # 0.02 10^3/uL (0.00-0.10) 10/07/17 04:15 PT 23.1 SEC (12.0-15.0) H 10/07/17 04:15 INR 2.04 (0.83-1.16) H 10/07/17 04:15 Sodium 141 mEq/L (135-145) 10/07/17 04:15 Potassium 4.4 mEq/L (3.3-5.0) 10/07/17 04:15 Chloride 100 mEq/L (97-110) 10/07/17 04:15 Carbon Dioxide 30 mEq/l (22-31) 10/07/17 04:15 Anion Gap 11 mEq/L (8-16) 10/07/17 04:15 BUN 16 mg/dL (7-23) 10/07/17 04:15 Creatinine 0.9 mg/dL (0.6-1.0) 10/07/17 04:15 Estimated GFR > 60 10/07/17 04:15 Glucose 134 mg/dL (70-100) H 10/07/17 04:15 Calcium 9.9 mg/dL (8.5-10.4) 10/07/17 04:15 Total Bilirubin 0.5 mg/dL (0.1-1.4) 10/07/17 04:15 Conjugated Bilirubin 0.3 mg/dL (0.0-0.5) 10/07/17 04:15 Unconjugated Bilirubin 0.2 mg/dL (0.0-1.1) 10/07/17 04:15 AST 36 IU/L (14-46) 10/07/17 04:15 ALT 26 IU/L (9-52) 10/07/17 04:15 Alkaline Phosphatase 88 IU/L (38-126) 10/07/17 04:15 POC Troponin I 0.00 ng/mL (0.00-0.08) 10/07/17 04:19 Total Protein 7.0 g/dL (6.3-8.2) 10/07/17 04:15 Albumin 4.0 g/dL (3.5-5.0) 10/07/17 04:15 Lipase < 10 IU/L (23-300) L 10/07/17 04:15 Imaging Review: CT Abd Prelim mod HH with bibasal atelectasis oth neg riguzzi 6:40 Visualized and Interpreted Chest x-ray results: Yes Chest X-Ray results: other (Atelectasis) Visualized and Interpreted EKG results: Yes EKG Interpretation: Positive for: LVH, normal sinsus rhythm, other (IVCD, diffuse Q waves) Assessment & Plan Assessment: 72 yo F w/ AF, CHB s/p PPM, FVL, IBS, microscopic colitis, and PE presents with abdominal pain. Plan: 1. Abdominal pain - Unclear etiology, possibly related to hiatal hernia or esophageal spasm as patient tells me this feels somewhat like her last spasm episode. CT abdomen shows only moderate hiatal hernia. Abdominal exam is reassuring. ECG shows no acute ischemia(personally interpreted) although it does have diffuse Q waves; troponin also negative. INR therapeutic so I doubt acute blood clot. She does have a hx of IBS and microscopic colitis but states that usually causes lower abdominal symptoms much different from her current symptoms. - Admit for observation - CT chest to rule out serious esophageal pathology - NPO, ADAT - Pain control with morphine PRN, anti-emetics PRN - If no other etiology found, consider CCB for spasms 2. Hx FVL, PE - On warfarin for this; INR therapeutic on admission. Last blood clot occurred in 2004. 3. AF, CHB - status post pacemaker, on warfarin. Continue home medications 4. Hx microscopic colitis 5. Hx IBS 6. Hypothyroid - Continue LTX Diet - NPO, ADAT Code - Full Ppx - warfarin, SCDs Dispo - Admit under observation status
[2017-10-07] MEDS ORDERED: PIPERACILLIN/TAZO 3.375 GM/DEX 50 ML IV ONE (07:37)
[2017-10-07] MEDS ORDERED: PANTOPRAZOLE SODIUM 40 MG VIAL IVP ONE (08:08)
[2017-10-07] MEDS: ONDANSETRON 4 MG/2 ML VIAL IVP PRN ×2 (09:13→19:24)
[2017-10-07] MEDS ORDERED: HYOSCYAMINE SULFATE 0.125 MG TAB PO PRN ×2 (12:04→17:21)
[2017-10-07] MEDS ORDERED: OXYCODONE/APAP 5/325 TAB PO PRN (12:04)
[2017-10-07] MEDS ORDERED: DOCUSATE SODIUM 100 MG CAP PO PRN (12:04)
[2017-10-07] MEDS: ACETAMINOPHEN 325 MG TAB PO PRN (13:27)
--- NOTE | 2017-10-07 14:11 | HOSPPROG ---
Hospitalist Progress Note Assessment/Plan: #Epigastric pain: nearly resolved. Suspect food poisoning given sxs abruptly after eating out -CT showed possible esophageal tear, not seen on esophagram -encourage PO; careful with IVFs with pulm HTN #IBS: home meds #Pulm HTN: home meds #Microscopic colitis: no diarrhea here #Factor 5 Leiden/o PE: resume Coumadin. D/w surgery prior to restarting to ensure no intervention needed #Disp: cont obs admission for pain control. Can likely DC in morning Subjective: epigastric pain gone Objective: Vital Signs Temp Pulse Resp BP Pulse Ox 36.8 C 77 18 121/70 H 91 L 10/07/17 12:25 10/07/17 12:25 10/07/17 12:25 10/07/17 12:25 10/07/17 12:25 10/06/17 10/07/17 10/08/17 05:59 05:59 05:59 Intake Total 1000 Balance 1000 PT 23.1 SEC (12.0-15.0) H 10/07/17 04:15 INR 2.04 (0.83-1.16) H 10/07/17 04:15 ICD10 Worksheet Patient Problems: Problems Problem Status Onset Abdominal pain Acute Chest pain Acute Hiatal hernia Acute Nausea & vomiting Acute Afib - Atrial fibrillation Acute CKD (chronic kidney disease) stage 3, GFR 30-59 ml/min Acute Dehydration Acute Diarrhea Acute Generalized weakness Acute HTN (hypertension) Acute Hypotension Acute Microscopic colitis Acute Pre-syncope Acute SIRS (systemic inflammatory response syndrome) Acute Syncope and collapse Acute
[2017-10-07] MEDS ORDERED: WARFARIN SODIUM 2.5 MG TAB PO SCH (16:00)
[2017-10-07] MEDS: OMEPRAZOLE 40 MG PO SCH (17:14)
[2017-10-07] MEDS: DICYCLOMINE 10 MG CAP PO SCH ×2 (18:00→21:15)
[2017-10-07] MEDS: traMADol 50 MG TAB PO SCH (21:15)
[2017-10-07] MEDS: METOPROLOL TARTRATE 50 MG TAB PO SCH (21:16)
[2017-10-07] MEDS: FUROSEMIDE 40 MG TAB PO SCH (21:16)
[2017-10-07] MEDS: CYCLOBENZAPRINE 10 MG TAB PO SCH (21:16)
[2017-10-07] MEDS: FLUNISOLIDE NASAL 200 SPRAYS/25 ML MDI NS SCH (22:28)
[2017-10-08] MEDS: ACETAMINOPHEN 325 MG TAB PO PRN ×2 (01:16→21:34)
[2017-10-08 05:20] LABS: INR 2.65 (0.83-1.16); PROTIME(PATIENT) 28.2 SEC (12.0-15.0)
[2017-10-08] MEDS: METOPROLOL TARTRATE 50 MG TAB PO SCH ×2 (08:18→21:36)
[2017-10-08] MEDS: LEVOTHYROXINE 137 MCG TAB PO SCH (08:19)
[2017-10-08] MEDS: OMEPRAZOLE 40 MG PO SCH ×2 (08:20→18:26)
[2017-10-08] MEDS: SERTRALINE HCL 100 MG TAB PO SCH (08:21)
[2017-10-08] MEDS: FUROSEMIDE 40 MG TAB PO SCH ×2 (08:22→21:35)
[2017-10-08] MEDS: traMADol 50 MG TAB PO SCH ×2 (08:22→21:34)
[2017-10-08] MEDS: MULTIVITAMINS 1 EACH TAB PO SCH (08:22)
[2017-10-08] MEDS: DICYCLOMINE 10 MG CAP PO SCH ×2 (08:23→14:49)
[2017-10-08] MEDS: BUDESONIDE 3 MG EC CAP PO SCH (08:27)
[2017-10-08] MEDS ORDERED: CETIRIZINE 10 MG TAB PO SCH (09:00)
[2017-10-08] MEDS ORDERED: Herbals/Supplements -Info Only PO SCH (09:00)
[2017-10-08] MEDS ORDERED: CYCLOBENZAPRINE 10 MG TAB PO ONE (09:45)
[2017-10-08] MEDS ORDERED: MAG HYDROX/AL HYDROX/SIMETH 30 ML UDCUP PO ONE (11:42)
[2017-10-08] MEDS ORDERED: LIDOCAINE 2% VISCOUS 15 ML UDCUP PO ONE (11:42)
[2017-10-08] MEDS ORDERED: HYOSCYAMINE SULFATE 0.125 MG TAB PO ONE (11:43)
[2017-10-08] MEDS ORDERED: KETOROLAC 15 MG/1 ML SDV IVP PRN (11:44)
[2017-10-08] MEDS ORDERED: PROMETHAZINE HCL 25 MG/ML INJ IVP PRN (11:45)
--- NOTE | 2017-10-08 12:00 | HOSPPROG ---
Hospitalist Progress Note Assessment/Plan: #Epigastric pain: worsened overnight. AXR negative for free air. Reports esophageal spasms in past. CT showed possible esophageal tear, not seen on esophagram. (Dr. García reviewed with Radiology) Think all triggered by food poisoning -spoke with GI who recommended Librax for spasms. Low-dose opioids #IBS: home meds #Pulm HTN: home meds #Microscopic colitis: no diarrhea here #Factor 5 Leiden/o PE: resume Coumadin. D/w surgery prior to restarting to ensure no intervention needed #Disp: cont inpatient admission for pain/nausea control Subjective: "epigastric pain terrible, N/V this morning" Objective: Vital Signs Temp Pulse Resp BP Pulse Ox 37 C 72 16 132/72 H 96 10/08/17 08:13 10/08/17 08:18 10/08/17 08:13 10/08/17 08:18 10/08/17 08:13 10/07/17 10/08/17 10/09/17 05:59 05:59 05:59 Intake Total 1150 Output Total 1200 Balance -50 PT 28.2 SEC (12.0-15.0) H 10/08/17 04:49 INR 2.65 (0.83-1.16) H 10/08/17 04:49 - Time Spent With Patient Time Spent with Patient: greater than 35 minutes Time Spent with Patient: Greater than 35 minutes spent on this patients care, greater than 50% of time spent counseling, educating, and coordinating care regarding the above mentioned plan. - Physical Exam Constitutional: uncomfortable Eyes: PERRL Ears, Nose, Mouth, Throat: moist mucous membranes Cardiovascular: regular rate and rhythym Respiratory: no respiratory distress Gastrointestinal: normoactive bowel sounds, tenderness (epigastric ) Genitourinary: no bladder fullness Skin: warm Musculoskeletal: full muscle strength Neurologic: AAOx3 ICD10 Worksheet Patient Problems: Problems Problem Status Onset Abdominal pain Acute Chest pain Acute Hiatal hernia Acute Nausea & vomiting Acute Afib - Atrial fibrillation Acute CKD (chronic kidney disease) stage 3, GFR 30-59 ml/min Acute Dehydration Acute Diarrhea Acute Generalized weakness Acute HTN (hypertension) Acute Hypotension Acute Microscopic colitis Acute Pre-syncope Acute SIRS (systemic inflammatory response syndrome) Acute Syncope and collapse Acute
[2017-10-08] MEDS: HYDROmorphONE/DILAUDID 1 MG/ML INJ IVP PRN ×2 (12:07→14:26)
[2017-10-08] MEDS: FAMOTIDINE 20 MG/NACL 50 ML IV SCH ×2 (12:16→21:33)
--- NOTE | 2017-10-08 14:46 | ASMTCMCOM ---
CM Note CM Note Notes: Chart reviewed. Patient admitted via ED for N/V after eating a meal out. Still c/o epigastric pain. No needs identified for home care services at this point. CM available to follow should needs arise. Plan: Likely dc to home when medically stable. Date Signed: 10/08/2017 02:46 PM Electronically Signed By:Tri Mckenna RN
[2017-10-08] MEDS ORDERED: WARFARIN SODIUM 2.5 MG TAB PO SCH ×2 (16:00→23:15)
[2017-10-08] MEDS ORDERED: CHLORDIAZ/CLIDINIU 5 MG/2.5 MG 1 CAP PO SCH (16:00)
[2017-10-08] MEDS ORDERED: WARFARIN SODIUM 2.5 MG TAB PO ONE (16:15)
[2017-10-08] MEDS ORDERED: HYDROmorphONE/DILAUDID 1 MG/ML INJ IVP PRN (16:17)
[2017-10-08] MEDS ORDERED: CHLORDIAZ/CLIDINIU 5 MG/2.5 MG 1 CAP PO PRN (16:23)
[2017-10-08] MEDS: FLUNISOLIDE NASAL 200 SPRAYS/25 ML MDI NS SCH (21:58)
[2017-10-08] MEDS: CYCLOBENZAPRINE 10 MG TAB PO SCH (23:48)
[2017-10-09] MEDS: OMEPRAZOLE 40 MG PO SCH (07:38)
[2017-10-09] MEDS: LEVOTHYROXINE 137 MCG TAB PO SCH (07:39)
[2017-10-09] MEDS: traMADol 50 MG TAB PO SCH (07:49)
[2017-10-09] MEDS: SERTRALINE HCL 100 MG TAB PO SCH (07:50)
[2017-10-09] MEDS: MULTIVITAMINS 1 EACH TAB PO SCH (07:50)
[2017-10-09] MEDS: BUDESONIDE 3 MG EC CAP PO SCH (07:51)
[2017-10-09] MEDS: METOPROLOL TARTRATE 50 MG TAB PO SCH (07:55)
[2017-10-09] MEDS ORDERED: FUROSEMIDE 40 MG TAB PO SCH (09:00)
[2017-10-09 11:39] VITALS: BP 112/61
[2017-10-09] MEDS: FAMOTIDINE 20 MG/NACL 50 ML IV SCH (11:51)
--- NOTE | 2017-10-09 12:47 | GDS ---
[f rep st] DISCHARGE SUMMARY DISCHARGE DIAGNOSES: Epigastric spasm/pain, irritable bowel syndrome, pulmonary hypertension, micros copic colitis, factor V Leiden with history of pulmonary embolism, atrial fibrillation status post pa cer followed at [facility], depression, asthma, hypothyroidism, disk herniation, hiatal hernia, chronic back pain. HISTORY OF PRESENT ILLNESS: A 72-year-old female with history of factor V Leiden, on chronic anticoa gulation, microscopic colitis, IBS, presenting with severe epigastric pain. She was in her normal st ate of health until she ate out at a [employer] restaurant. She then went home and developed vomiting w ithout blood at 9 p.m., which continued, so she came to the emergency room. CT showed moderate hiata l hernia, possible linear tear in the distal esophagus. HOSPITAL COURSE BY PROBLEM: 1. Epigastric pain/esophageal spasm: Initial concern for esophageal tear on CT. Esophagram was unr emarkable and imaging was reviewed by Dr. García. This is likely spasm, which she has had in the [facility] t, triggered by food poisoning and vomiting. Pain improved with Dilaudid and Librax. Will provide a few Librax as needed. Repeat x-ray was reassuring for no free air. She is now pain free and eating soft foods, which I recommend for the next couple days. 2. Factor V Leiden: On Coumadin. INR pending. Should be able to her own medications. 3. Microscopic colitis, on prednisone. 4. IBS. Bentyl. 5. Atrial fibrillation, followed at [facility]. 6. Depression, home medications. DISPOSITION: The patient is stable for discharge with her partner today. NEW MEDICATIONS: Librax p.r.n. for esophageal spasm. FOLLOWUP: 1. Her primary physician. 2. Her primary production support specialist, Dr. Sol. PHYSICAL EXAMINATION: VITAL SIGNS: Today, temperature 36.8, blood pressure 112/61, heart rate is in the 70s, respirations 16, 92% on room air. GENERAL: She is smiling, sitting up playing cards with her partner. HEENT: PERRLA. Moist mucous membranes. CV: Regular rate and rhythm. LUNGS: Clear. ABDOMEN: No tenderness on exam today. Positive bowel sounds. : No Gruber. MUSCULOSKELETAL: 5 /5 upper and lower extremity strength. NEURO: Two through 12 are intact. PSYCH: Alert and oriente d x3. Time spent on discharge greater 30 minutes at bedside reviewing patient and explaining followup and m edications with she and her partner. /[id number]/MODL
--- NOTE | 2017-10-09 13:04 | ASMTLACE ---
[place] Length of stay for Answers: 2 days current admission Comorbidities - select Answers: Opioid dependence all that apply / Chronic pain Other Notes: AFib; Hx of PE # of Emergency department Answers: 1-2 visits in the last 6 months Social determinants Answers: Mental health diagnosis (anxiety, depression, pers onality disorders, etc.) Score: 11 Date Signed: 10/09/2017 01:03 PM Electronically Signed By:Tri Mckenna RN
--- NOTE | 2017-10-09 13:05 | ASMTCMCOM ---
CM Note CM Note Notes: Per MD. patient medically cleared for discharge to home. No needs identified CM available should needs arise. Plan: DC to home Date Signed: 10/09/2017 01:05 PM Electronically Signed By:Tri Mckenna RN
[2017-10-09 13:09] LABS: INR 2.87 (0.83-1.16)
[2017-10-09] MEDS ORDERED: WARFARIN SODIUM 2.5 MG TAB PO SCH (16:00)
[2017-10-09] MEDS ORDERED: CETIRIZINE 10 MG TAB PO SCH (21:00)
== END 2017-10-09 13:35 | disposition home or self-care (01) ==
LOC: EDUNIT# → F1N 09:55
PROVIDERS: ADMIT Student in an Organized Health Care Education/Training Program; ATTEND Student in an Organized Health Care Education/Training Program
DX: R10.13 Epigastric pain (principal); K58.9 Irritable bowel syndrome, unspecified; E86.9 Volume depletion, unspecified; I27.20 Pulmonary hypertension, unspecified; K52.839 Microscopic colitis, unspecified; D68.2 Hereditary deficiency of other clotting factors; I48.91 Unspecified atrial fibrillation; F32.9 Major depressive disorder, single episode, unspecified; J45.909 Unspecified asthma, uncomplicated; E03.9 Hypothyroidism, unspecified; K44.9 Diaphragmatic hernia without obstruction or gangrene; Z79.01 Long term (current) use of anticoagulants; Z86.711 Personal history of pulmonary embolism; Z99.81 Dependence on supplemental oxygen
CPT/HCPCS: 71045; 71250; 74018; 74177; 74220; 93005; 96361; 96365; 96375; 99285; G0378; J1170; J2270; J2405; J2550; Q9967; 84484-PO; J2543

== ENCOUNTER → 2018-06-13 | Outpatient (CLI) | payer OTHER | LOC: FIMAGING 13:23 | PROVIDERS: ATTEND Internal Medicine | DX: Z12.31 Encounter for screening mammogram for malignant neoplasm of breast (principal) ==

== ENCOUNTER 2018-06-16 12:41 | Emergency (ER) | payer OTHER ==
--- NOTE | 2018-06-16 12:56 | EDPHY ---
H & P Time Seen by Provider: 06/16/18 12:55 HPI/ROS: CHIEF COMPLAINT: Left-sided chest pain HISTORY OF PRESENT ILLNESS: Patient has a history recurrent pulmonary emboli in factor 5 Leiden and has been on continuous warfarin therapy since 2004. She was off of her Coumadin on Sunday to get an injection for her back pain and then restarted her anticoagulation Sunday night. Starting 3 days ago on she describes pain in the left side of her chest just left of the center radiates to her back feels like a knife and hurts when she takes a deep breath or lift her left arm. She says this is just like prior pulmonary emboli. Not associated with nausea or diaphoresis or radiation to her arm or jaw. Not exertional. Symptoms moderate not helped by her tramadol which she takes for her back. REVIEW OF SYSTEMS: Eye: no change in vision ENT: no sore throat Cardiac: HPI no palpitations or syncope Pulmonary: Chronically on oxygen for pulmonary hypertension no change Abdomen: no vomiting, diarrhea, abdominal pain Musculoskeletal: Chronic back pain unchanged Skin: no rash Neuro: no headache Constitutional: no fever : no urinary symptoms A comprehensive 10 point review of systems is otherwise negative aside from elements mentioned in the history of present illness. PAST MEDICAL HISTORY: Includes pulmonary emboli with factor 5 Leiden, pulmonary hypertension, 2 L oxygen, previous spine surgery with chronic back pain, hysterectomy. History and physical dated 10/07/2017 personally reviewed also includes atrial fibrillation, asthma, ablation and pacemaker. Social history: Dropped off today by her partner. Nonsmoker. General Appearance: Alert and conversant, cooperative. Eyes: No scleral icterus. ENT, Mouth: Normal mucous membranes. Respiratory: Normal respiratory effort, breath sounds equal, lungs are clear to auscultation. No wheezing or rales. Cardiovascular: Regular rate and rhythm. Gastrointestinal: Abdomen is soft and non tender. Neurological: Alert, face symmetric, normal motor and sensory in extremities. Skin: Warm and dry, no rashes. Musculoskeletal: Very mild peripheral edema but no calf tenderness. Psychiatric: Not agitated. Emergency Department course/MDM: Dilaudid 0.5 and Zofran 4, plan to check INR with imaging planned if subtherapeutic. 1322: Troponin is 0, suspicion for ACS is low. INR 1.94, CT chest discussed and consented. 1502: Per Dr. Alvarez CT shows fibrosis, no infiltrate or pulmonary embolism, normal vessels. Plan for pain control and discharge. Results discussed, more likely muscular or inflammatory, patient says she is comfortable with the plan for symptomatic treatment and discharge. Smoking Status: Never smoked Constitutional: Initial Vital Signs Temperature (C) 37 C 06/16/18 12:43 Heart Rate 70 06/16/18 12:43 Respiratory Rate 16 06/16/18 12:43 Blood Pressure 131/81 H 06/16/18 12:43 O2 Sat (%) 96 06/16/18 12:43 O2 Delivery Mode Room Air O2 (L/minute) 2 Allergies/Adverse Reactions: clindamycin [Clindamycin] Allergy (Verified 10/07/17 04:07) meloxicam Allergy (Verified 10/08/17 12:23) difficulty breathing, renal failure venom-honey bee [bee venom (honey bee)] Allergy (Verified 10/07/17 04:07) Home Medications: Medication Instructions Recorded Budesonide [Entocort EC] 6 mg PO DAILY 08/04/14 Cyclobenzaprine [Flexeril 10 MG 10 mg PO HS 08/04/14 (*)] Flunisolide Nasal [Nasarel Nasal 1 sprays NS HS 08/04/14 [place]] Levothyroxine [Synthroid 137 mcg 137 mcg PO DAILY 08/04/14 (*)] Omeprazole [Prilosec] 40 mg PO BID 08/04/14 Zolpidem Tartrate [Ambien 10 mg] 10 mg PO HS PRN 08/04/14 Docusate Sodium [Colace 100 MG (*)] 100 mg PO DAILY PRN 08/05/14 Herbals/Supplements -Info Only 1 ea PO DAILY 08/05/14 Hyoscyamine Sulfate [Levsin, 0.125 - 0.25 mg PO BID PRN 08/05/14 Hyomax-Sl 0.125 mg (*)] Multivitamins [Multivitamin (*)] 1 each PO DAILY 08/05/14 Potassium Chloride [Klor-Con M10] 10 meq PO BID 08/05/14 traMADol [Ultram 50 mg (*)] 100 mg PO BID 08/05/14 Metoprolol Tartrate [Lopressor 50 75 mg PO BID 04/14/15 mg (*)] Furosemide 80 mg PO DAILY 10/09/16 Warfarin Sodium [Coumadin 2.5MG 1.25 mg PO MO@16 10/09/16 (*)] Warfarin Sodium [Coumadin 2.5MG 2.5 mg PO SUTUWETHFRSA@16 10/09/16 (*)] Sertraline HCl [Zoloft 100mg (*)] 100 mg PO DAILY 05/23/17 Adempas (Riociguat) 2.5 mg PO TID 10/07/17 Cetirizine [ZyrTEC 10 mg (*)] 10 mg PO HS 10/07/17 Dicyclomine [Bentyl 10 MG (*)] 10 mg PO TID PRN 10/07/17 Lisinopril [Zestril 2.5 mg (*)] 2.5 mg PO BID 10/07/17 oxyCODONE/APAP 5/325 [Percocet 1 tab PO Q6H PRN 10/07/17 5/325 (*)] Chlordiaz/Clidiniu 5/2.5 [Librax 1 cap PO BID #15 cap 10/09/17 (*)] Medical Decision Making - Diagnostics EKG Interpretation: 12-lead EKG interpreted by me; official reading is in computer system. My interpretation is atrial pacing with loss of anterolateral R-wave. Rate 70. Imaging Results: Imaging Impressions Chest/Thorax CTA 06/16/18 13:28 Impression: 1. No evidence of pulmonary embolus using CT protocol. 2. Increase in fibrotic band/chronic atelectasis bilaterally. 3. Stable enhancing nodule lower pole left lobe of the thyroid. Impression dating back to 2013. If indicated, consider correlation with thyroid ultrasound. 4. Moderate hiatal hernia. Gastroesophageal reflux is also suspected with mildly dilated mid and distal esophagus. 5. Mild cardiomegaly. Findings discussed with Don Zamora M.D. at 15:01 hour, 06/16/2018. - Data Points Laboratory Results: Laboratory Results 06/16/18 12:57 06/16/18 12:57 06/16/18 06/16/18 06/16/18 13:03 12:57 12:57 WBC RBC Hgb Hct MCV MCH MCHC RDW Plt Count MPV Neut % (Auto) Lymph % (Auto) Curry % (Auto) Eos % (Auto) Baso % (Auto) Nucleat RBC Rel Count Absolute Neuts (auto) Absolute Lymphs (auto) Absolute Monos (auto) Absolute Eos (auto) Absolute Basos (auto) Absolute Nucleated RBC Immature Gran % Immature Gran # PT 21.2 SEC H SEC (12.0-15.0) INR 1.94 H (0.83-1.16) Sodium 138 mEq/L mEq/L (135-145) Potassium 3.9 mEq/L mEq/L (3.5-5.2) Chloride 95 mEq/L L mEq/L (97-110) Carbon Dioxide 31 mEq/l mEq/l (22-31) Anion Gap 12 mEq/L mEq/L (6-14) BUN 18 mg/dL mg/dL (7-23) Creatinine 1.0 mg/dL mg/dL (0.6-1.0) Estimated GFR 55 Glucose 95 mg/dL mg/dL (70-100) Calcium 9.1 mg/dL mg/dL (8.5-10.4) POC Troponin I 0.00 ng/mL ng/mL (0.00-0.08) 06/16/18 12:57 WBC 9.14 10^3/uL 10^3/uL (3.80-9.50) RBC 4.65 10^6/uL 10^6/uL (4.18-5.33) Hgb 14.1 g/dL g/dL (12.6-16.3) Hct 41.7 % % (38.0-47.0) MCV 89.7 fL fL (81.5-99.8) MCH 30.3 pg pg (27.9-34.1) MCHC 33.8 g/dL g/dL (32.4-36.7) RDW 13.4 % % (11.5-15.2) Plt Count 248 10^3/uL 10^3/uL (150-400) MPV 9.0 fL fL (8.7-11.7) Neut % (Auto) 69.0 % % (39.3-74.2) Lymph % (Auto) 16.8 % % (15.0-45.0) Curry % (Auto) 10.0 % % (4.5-13.0) Eos % (Auto) 2.7 % % (0.6-7.6) Baso % (Auto) 0.8 % % (0.3-1.7) Nucleat RBC Rel Count 0.0 % % (0.0-0.2) Absolute Neuts (auto) 6.31 10^3/uL 10^3/uL (1.70-6.50) Absolute Lymphs (auto) 1.54 10^3/uL 10^3/uL (1.00-3.00) Absolute Monos (auto) 0.91 10^3/uL H 10^3/uL (0.30-0.80) Absolute Eos (auto) 0.25 10^3/uL 10^3/uL (0.03-0.40) Absolute Basos (auto) 0.07 10^3/uL 10^3/uL (0.02-0.10) Absolute Nucleated RBC 0.00 10^3/uL 10^3/uL (0-0.01) Immature Gran % 0.7 % % (0.0-1.1) Immature Gran # 0.06 10^3/uL 10^3/uL (0.00-0.10) PT INR Sodium Potassium Chloride Carbon Dioxide Anion Gap BUN Creatinine Estimated GFR Glucose Calcium POC Troponin I Medications Given: Discontinued Medications Hydromorphone HCl (Dilaudid) 0.5 mg IVP EDNOW ONE Stop: 06/16/18 13:09 Last Admin: 06/16/18 13:18 Dose: 0.5 mg Ondansetron HCl (Zofran) 4 mg IVP EDNOW ONE Stop: 06/16/18 13:09 Last Admin: 06/16/18 13:18 Dose: 4 mg Point of Care Test Results: Chemistry 06/16/18 13:03 POC Troponin I 0.00 ng/mL ng/mL (0.00-0.08) Departure - Departure Disposition: Home, Routine, Self-Care Clinical Impression: Chest pain Condition: Good Instructions: Chest Pain (ED) Additional Instructions: Your INR was 1.94 today; continue warfarin as prescribed. Referrals: Sandrine Velazquez MD [Medical Doctor] - As per Instructions
[2018-06-16] MEDS ORDERED: HYDROmorphONE/DILAUDID 2 MG/ML INJ IVP ONE ×2 (13:08→15:08)
[2018-06-16] MEDS ORDERED: ONDANSETRON 4 MG/2 ML VIAL IVP ONE (13:08)
[2018-06-16 13:14] LABS: PLATELET COUNT 248 10^3/uL (150-400)
[2018-06-16 13:24] LABS: INR 1.94 (0.83-1.16); PROTIME(PATIENT) 21.2 SEC (12.0-15.0)
[2018-06-16] MEDS ORDERED: IOPAMIDOL (ISOVUE-370) 150 ML BTL IV ONE (14:12)
[2018-06-16 15:18] VITALS: BP 112/62
--- NOTE | 2018-06-16 16:37 | CPEKG ---
Test Reason : OPEN Blood Pressure : / mmHG Vent. Rate : 070 BPM Atrial Rate : 070 BPM P-R Int : 179 ms QRS Dur : 142 ms QT Int : 450 ms P-R-T Axes : 023 268 049 degrees QTc Int : 486 ms Atrial-paced complexes Nonspecific IVCD with LAD Anterolateral infarct, age indeterminate Confirmed by Don Zamora ([id number]) on 06/16/2018 4:37:44 PM Referred By: Don Zamora Confirmed By:Don Zamora
== END 2018-06-16 15:33 | disposition home or self-care (01) ==
DX: R07.89 Other chest pain (principal); E04.1 Nontoxic single thyroid nodule; I48.91 Unspecified atrial fibrillation; I27.20 Pulmonary hypertension, unspecified; D68.2 Hereditary deficiency of other clotting factors; K44.9 Diaphragmatic hernia without obstruction or gangrene; Z79.01 Long term (current) use of anticoagulants; Z99.81 Dependence on supplemental oxygen; Z95.0 Presence of cardiac pacemaker
CPT/HCPCS: 71275; 93005; 96374; 96375; 96376; 99285; J1170; J2405; Q9967; 84484-ER